=== PATIENT | female | born 1985 | race Caucasian/White ===

== ENCOUNTER 2019-09-02 09:51 | Inpatient (IN) | payer OTHER, SELFPAY ==
--- NOTE | ~2019-09-02 | CT_ITS ---
EXAMINATION: CT abdomen pelvis w con DATE: 09/02/2019 11:38 INDICATION: Generalized abdominal pain. Nausea, vomiting, diarrhea. Fever. History of pancreatitis. TECHNIQUE: Computed tomography (CT) of the abdomen and pelvis was performed with 100 cc Omnipaque 350 intravenous contrast. Automated exposure control and iterative reconstruction technique were employe d. Exam dose: 549.73 mGy-cm total exam DLP. COMPARISON: None. FINDINGS: There is minimal dependent atelectasis in the right lower lobe. Normal heart size. No pericardial or pleural effusion. Diffuse hepatic steatosis. No hepatic space-occupying mass lesion or bile duct dilatation is evident. The gallbladder is present. No gallbladder wall thickening or pericholecystic fluid or stranding. There is diffuse peripancreatic fat stranding/fluid, consistent with pancreatitis. There is an approx imately 17 x 20 mm area of lower attenuation of the pancreatic tail, most likely pancreatic phlegmon. No pancreatic calcification or ductal dilatation is evident. Normal splenic size. Normal adrenal glands. The kidneys appear normal. No urinary tract calculus or hydroureteronephrosis. IUD within uterus. The urinary bladder is relatively evacuated, unremarkable. Normal appendix. No bowel obstruction or intraperitoneal free air is detected. There are fluid contai concha distal small bowel segments with occasional air-fluid levels, without apparent obstruction; find ings are likely due to mild adynamic ileus. Normal caliber of the abdominal aorta. No intraperitoneal or retroperitoneal or pelvic mass lesion or adenopathy or ascites. Included skeletal structures are unremarkable. IMPRESSION: Acute pancreatitis with peripancreatic fat stranding/fluid Hepatic steatosis Reviewed, dictated and finalized at [facility]. Reviewed, dictated and finalized at location [facility].
--- NOTE | ~2019-09-02 | US_ITS ---
EXAMINATION: US right upper quadrant EXAM DATE: 09/03/2019 11:16 INDICATION: Nausea vomiting. Hepatic steatosis. Acute pancreatitis. TECHNIQUE: Multiple grayscale and Doppler images of the abdomen right upper quadrant were obtained (b y a technologist who performed the scan) and subsequently reviewed. Correlation is made to CT from . FINDINGS: The pancreatic head and body are normal in appearance. The pancreatic tail is not visualized. There is echogenic liver parenchyma, hepatic steatosis. There are no focal liver lesions identified. Th ere is no evidence of intrahepatic biliary duct dilation. Portal venous flow was seen in the hepatop edal, normal direction and has normal Doppler waveform. No right-sided hydronephrosis. Common bile duct measures 5 mm, which is normal. The gallbladder wall is normal in thickness, with mo derate amount of distention. No sonographic evidence of pericholecystic fluid. There is cholelithia sis. Technologist performing exam reports patient did not demonstrate sonographic Duran's sign. P ronan note that this sign is less reliable in patients who have received pain medication. IMPRESSION: Hepatic steatosis. Reviewed, dictated and finalized at location [facility]. IMPRESSION: Hepatic steatosis.
[2019-09-02 09:55] VITALS: BP 140/87; PULSE 75; RESP 18; TEMP 36.6; O2SAT 99
[2019-09-02 10:33] LABS: Basophils Absolute Auto 0.02 K/mm3 (0.00-0.10); Basophils Percent Auto 0.2 % (0.0-1.0); Hematocrit 44.3 % (35.0-49.0); Hemoglobin 15.2 g/dL (12.0-15.0); Immature Granulocyte Absolute 0.03 K/mm3 (0.00-0.00); Immature Granulocyte Percent A 0.3 % (0.0-0.0); Lymphocytes Absolute Auto 0.84 K/mm3 (1.10-4.50); Lymphocytes Percent Auto 9.7 % (18.0-42.0); Mean Corpuscular HGB Conc 34.3 g/dL (32.0-36.0); Mean Corpuscular Hemoglobin 32.8 pg (27.0-31.0); Mean Corpuscular Volume 95.7 fL (78.0-102.0); Mean Platelet Volume 10.3 fl (9.2-11.8); Monocytes Absolute Auto 0.46 K/mm3 (0.10-0.90); Monocytes Percent Auto 5.3 % (2.0-11.0); Neutrophils Absolute Auto 7.3 K/mm3 (1.7-7.2); Neutrophils Percent Auto 84.5 % (50.0-70.0); Platelet Count Result 197 K/mm3 (150-420); Red Blood Count 4.63 M/mm3 (4.20-5.40); Red Cell Distribution Width 16.7 % (11.6-14.4); White Blood Count 8.7 K/mm3 (4.8-10.8)
[2019-09-02 10:34] LABS: Add Urine Microscopic? YES; Appearance Urine Clear (Clear); Bilirubin Urine Negative (Negative); Blood Urine Negative (Negative); Color Urine Yellow (Yellow); Glucose Urine UA Negative (Negative); Ketones Urine 1+ (Negative); Leukocyte Esterase Ur Negative (Negative); Nitrate Urine Negative (Negative); Protein Urine 1+ (Negative); Urobilinogen Urine 0.2 mg/dL (0.2-1.0); pH Urine 8.5 (5.0-8.0)
[2019-09-02] MEDS: SODIUM CHLORIDE 0.9% IV 1,000 ML 999 ML IV CONT ×2 (10:35→11:25)
[2019-09-02] MEDS: HYDROMORPHONE HCL 2 MG/ML VIAL 0.5 MG IV PUSH ×4 (10:35→14:38)
[2019-09-02] MEDS: PANTOPRAZOLE SODIUM IV 40 MG VIAL IV PUSH (10:35)
[2019-09-02] MEDS: ONDANSETRON INJ 4 MG/2 ML VIAL IV PUSH ×4 (10:35→22:20)
[2019-09-02 10:37] LABS: Pregnancy On Board Control Negative; Urine Pregnancy Test Negative
[2019-09-02 10:39] LABS: RBC Urine 0-2 /hpf (0-2); Squamous Epithelial Cell Urine Moderate /hpf (Few); WBC Urine 0-3 /hpf (0-3)
[2019-09-02 10:40] LABS: Bacteria Urine 1+ /hpf; Mucus Urine Moderate /lpf
[2019-09-02 10:47] LABS: Prothrombin Time 10.5 Seconds (9.64-11.0)
--- NOTE | 2019-09-02 10:53 | PC.NURSE ---
updated report to SORAIDA Calix.
[2019-09-02 11:03] LABS: Alanine Aminotransferase 124 U/L (14-59); Alkaline Phosphatase 146 U/L (46-116); Anion Gap 16.6 mmol/L (7-16); Aspartate Amino Transferase 90 U/L (15-37); Bilirubin,Total 0.5 mg/dL (0.00-1.00); Blood Urea Nitrogen 8 mg/dL (7-18); Calcium 8.6 mg/dL (8.5-10.1); Carbon Dioxide 23 mmol/L (21-32); Chloride 102 mmol/L (98-108); Estimated CRCL calculation 85 ml/min; Estimated Glomerular Filt Rate > 60; Glucose 126 mg/dL (70-99); Osmolality Calculated 286 mOsm/kg (285-295); Potassium 3.6 mmol/L (3.5-5.1); Sodium 138 mmol/L (136-145); Total Protein 8.1 g/dL (6.4-8.2)
[2019-09-02 11:15] LABS: Lipase 2038 U/L (73-393)
--- NOTE | 2019-09-02 12:25 | PC.NURSE ---
[facility] CALLED FOR POSSIBLE ADMISSION
--- NOTE | 2019-09-02 12:42 | ED.ABDPAIN ---
HPI - Abdominal Pain General Chief Complaint: Nausea/Vomiting/Diarrhea Stated Complaint: Abd Pain/Vomiting/Fever Time Seen by Provider: 09/02/19 09:57 Source: patient Mode of arrival: ambulatory Limitations: no limitations History of Present Illness HPI narrative: 34-year-old woman comes in today complaining of abdominal pain, nausea and vomiting and fever that started yesterday. Patient states that she also had some mild diarrhea. Patient was due to have a cholecystectomy after resolution of intra-abdominal blood clot. To that end she was taking Pradaxa for 6 months, having taken her last dose 3 weeks ago. She reports that a follow-up CT shows no evidence of blood clot. MD elicited complaint: abdominal pain Onset (ago): day(s) (1) Pain Consistency: constant Location: epigastric Severity: severe Quality: sharp and burning Radiation: none Migration to: no migration Exacerbating factors: movement Relieving factors: nothing Associated symptoms: nausea, vomiting, diarrhea and fever Related Data Patient : No Home Medications Medication Instructions Recorded Confirmed gabapentin 600 mg PO DIRECTED 09/02/19 09/02/19 Allergies Allergy/AdvReac Type Severity Reaction Status Date / Time No Known Allergies Allergy Verified 09/02/19 10:27 Review of Systems Constitutional: Constitutional: Denies chills, Reports fatigue and Reports fever(s) Eyes: Eyes: Denies change in vision and Denies photophobia ENT: Denies dysphagia, Denies nasal congestion and Denies sore throat Cardiovascular: Cardiovascular: Denies chest pain and Denies radiating jaw, neck or arm pain Respiratory: Respiratory: Denies cough, Denies dyspnea and Denies wheezing Gastrointestinal: Gastrointestinal: Reports abdominal pain, Reports diarrhea, Reports nausea and Reports vomiting Genitourinary: Genitourinary: Denies hematuria, Denies nocturia and Denies dysuria Musculoskeletal: Musculoskeletal: Denies arthralgias and Denies joint swelling Integumentary/Breasts: Skin/Breast: Denies pruritus, Denies erythema and Denies rash Neurologic: Denies vertigo, Denies dizziness and Denies syncope Psychiatric: Psychiatric: Denies anxiety and Denies depression Endocrine: Endocrine: Denies polydipsia and Denies polyuria Hematologic/Lymphatic: Hematologic/Lymphatic: Denies easy bleeding and Denies easy bruising Allergic/Immunologic: Allergic/Immunologic: Denies lip swelling and Denies wheezing PMFSH Past Medical History Medical History (Updated 09/02/19 @ 12:56 by Dayday Vasquez MD) Pancreatic pseudocyst Pancreatitis Thrombus Surgical History Surgical History (Updated 09/02/19 @ 12:51 by Dayday Vasquez MD) History of esophagogastroduodenoscopy (EGD) Social History Social History (Updated 09/02/19 @ 12:51 by Dayday Vasquez MD) Smoking status: Current every day smoker Alcohol intake: never Substance use: never Living arrangements: with family Exam Const: General: healthy appearing and alert Orientation/consciousness: patient oriented x3 Limitations: no limitations Other: moderate/severe acute distress HENMT: Ears: external ears normal, TM's normal bilaterally and EAC's normal Mouth: Yes Normal oral and palatal mucosa present and Yes moist mucous membranes Throat: posterior oropharynx normal and uvula midline Eyes: Conjunctivae: conjunctivae normal Pupils: Equal, round and reactive pupils present EOM: EOMs intact bilaterally Resp: Effort & Inspection: normal respiratory effort and not labored Auscultation: clear to auscultation bilaterally, no rales, no rhonchi and no wheezes Cardio: Rate: regular rate Rhythm: regular rhythm Heart sounds: no murmurs GI: GI Palp: Yes Soft to palpation, Yes Tenderness to palpation present (GI) ( throughout, mostly at the epigastrium), Yes Guarding due to palpation present (GI) and No Rebound tenderness present Skin: General skin exam: normal color, no jaundice and
[2019-09-02 12:54] VITALS: BP 137/80; PULSE 71; O2SAT 98
--- NOTE | 2019-09-02 13:55 | PC.NURSE ---
SECOND CALL PLACED TO NELY
[2019-09-02 14:00] VITALS: BP 122/71; PULSE 73; O2SAT 97
--- NOTE | 2019-09-02 14:03 | PC.NURSE ---
DR SAUNDERS CALLS BACK FOR CONSULT - OK TO ADMIT PATIENT HERE AND PROVIDE FOLLOW UP INFORMATION AT DISCHARGE
[2019-09-02 14:34] VITALS: BP 135/77; PULSE 88; O2SAT 98
--- NOTE | 2019-09-02 14:46 | PM.IMHP ---
H&P: HPI History of Present Illness Chief complaint: Abd Pain/Vomiting/Fever Narrative: Taisha Harrison is a 34 year old female WHO PRESENTED TO THE ED COMPLAINING OF ABDOMINAL PAIN, SUBJECTIVE FEVER, NAUSEA, VOMITING, DIARRHEA SINCE YESTERDAY. PATIENT MEDICAL history of seizure ,FIBROMYALGIA AND PANCREATITIS. ACCORDING TO PATIENT THE SYMPTOMS THAT SHE IS HAVING NOW ARE THE SAME ONES SHE HAD WHEN SHE WAS IN [place] AND WAS DIAGNOSED WITH NECROTIC PANCREATITIS 3 WEEKS AGO ACCORDING TO PATIENT WHILE SHE WAS IN [place] SHE DID HAVE A PROCEDURE COMPLETED IT WAS DISCOVERED THAT SHE HAD A CLOT IN HER ABDOMEN. I HAVE REQUESTED RECORDS FROM [facility] IN [place]. ACCORDING TO THE PATIENT HER ABDOMINAL PAIN IS A 03/27 VITAL SIGNS 36.6, 88, 98, 135/77. WHILE IN THE ER CT OF THE ABDOMEN WAS COMPLETE AND INDICATED Acute pancreatitis with peripancreatic fat stranding/fluid. PATIENT BEING ADMITTED TO THE HOSPITAL FOR ACUTE PANCREATITIS SHE REMAINED NPO GIVEN PAIN MEDICATION WITH ANTI EMESIS MEDICATION AN ULTRASOUND OF THE RIGHT UPPER QUADRANT PENDING , REPEAT LABS . PATIENT DENIES SOB, CP, PALPITATION, EXTREMITY NUMBNESS, LIGHTHEADNESS, DIZZINESS, CONSTIPATION,. SHE DOES CONTINUE TO COMPLAIN OF ABDOMINAL PAIN. Review of Systems Constitutional: Constitutional: Denies fatigue, Reports fever(s), Reports headache(s) and Reports weakness ENT: Reports system reviewed and no additional complaints, except as documented Cardiovascular: Cardiovascular: Denies chest pain, Denies dyspnea on exertion and Denies orthopnea Respiratory: Respiratory: Denies no additional respiratory complaints, Denies chest congestion, Denies cough, Denies dyspnea, Denies dyspnea on exertion and Denies wheezing Gastrointestinal: Gastrointestinal: Reports abdominal pain ( GENERALIZED ABDOMINAL PAIN), Denies hematochezia, Denies coffee ground emesis, Reports diarrhea, Reports nausea, Reports vomiting and Denies hematemesis Genitourinary: Genitourinary: Reports no additional female genitourinary complaints Musculoskeletal: Musculoskeletal: Reports myalgias ( SECONDARY TO FIBROMYALGIA) Integumentary/Breasts: Skin/Breast: Reports system reviewed and no additional complaints, except as docu Neurologic: Denies confusion, Denies vertigo, Denies dizziness, Denies headache(s) and Denies weakness Psychiatric: Psychiatric: Denies no additional psychiatric complaints [facility] Past Medical History Medical History (Updated 09/03/19 @ 13:29 by Sonda R. Erasmo, DATA SECURITY COORDINATOR-C) Fibromyalgia Pancreatic pseudocyst Pancreatitis Seizure Thrombus Surgical History Surgical History (Updated 09/02/19 @ 12:51 by Dayday Vasquez MD) History of esophagogastroduodenoscopy (EGD) Social History Social History (Updated 09/02/19 @ 12:51 by Dayday Vasquez MD) Years smoked: 10 Smoking status: Current every day smoker Alcohol intake: former Substance use: never Substance use type: does not use Living arrangements: with family Gender identity (if verbalized by the patient): Female Spiritual care concerns: No Agree to blood products: Yes Meds Home Medications and Allergies Home Medications Medication Instructions Recorded Confirmed Type gabapentin See Rx Instructions .ROUTE .COMPLEX 09/02/19 09/02/19 History Allergies Allergy/AdvReac Type Severity Reaction Status Date / Time No Known Allergies Allergy Verified 09/02/19 10:27 Vital Signs Vital Signs - 24 hr 09/02/19 09:55 09/02/19 12:54 09/02/19 14:00 Temperature 36.6 C Pulse Rate 75 71 73 Respiratory Rate 18 Blood Pressure 140/87 137/80 122/71 Pulse Oximetry 99 98 97 09/02/19 14:34 Temperature Pulse Rate 88 Respiratory Rate Blood Pressure 135/77 Pulse Oximetry 98 Exam Narrative: Exam Narrative: HEENT: NORMOCEPHALIC, ATRAUMATIC. PERRL, EOMI. SCLERAE ANICTERIC. ORAL MUCOSA MOIST. OROPHARYNX CLEAR. NECK: SUPPLE. RESPIRATORY: LUNGS ARE CLEAR TO AUSCULTATION B
[2019-09-02 14:53] VITALS: BMI 29.2
[2019-09-02 15:11] VITALS: BP 123/71; PULSE 67; RESP 20; TEMP 36.6; O2SAT 98
[2019-09-02] MEDS: DEXTROSE 5%/0.9% SOD CHL 1,000 ML 200 ML IV CONT ×2 (15:50→21:04)
[2019-09-02] MEDS: ENOXAPARIN 40 MG/0.4 ML SYRINGE SUB-Q (15:51)
[2019-09-02] MEDS: HYDROMORPHONE HCL 2 MG/ML VIAL 1 MG IV PUSH ×3 (16:03→22:19)
--- NOTE | 2019-09-02 16:08 | PC.NURSE ---
a signed released faxed to [facility] in [place] for medical records for patient.
[2019-09-02] MEDS: METOCLOPRAMIDE HCL INJ 10 MG/2 ML VIAL IV PUSH (19:20)
[2019-09-02 22:00] VITALS: BP 118/74; PULSE 70; RESP 20; TEMP 36.3; O2SAT 100
--- NOTE | 2019-09-03 01:00 | PC.NURSE ---
reseting per bed, appears to be asleep. resp even and unlabored. no evidence of pain. call light in reach
[2019-09-03] MEDS: HYDROMORPHONE HCL 2 MG/ML VIAL 1 MG IV PUSH ×4 (01:28→11:35)
[2019-09-03] MEDS: METOCLOPRAMIDE HCL INJ 10 MG/2 ML VIAL IV PUSH ×3 (01:32→21:19)
[2019-09-03] MEDS: DEXTROSE 5%/0.9% SOD CHL 1,000 ML 200 ML IV CONT ×3 (01:33→11:42)
[2019-09-03] MEDS: ONDANSETRON INJ 4 MG/2 ML VIAL IV PUSH ×3 (04:34→17:15)
[2019-09-03 05:22] LABS: Basophils Absolute Auto 0.01 K/mm3 (0.00-0.10); Basophils Percent Auto 0.2 % (0.0-1.0); Eosinophils Absolute Auto 0.04 K/mm3 (0.02-0.50); Eosinophils Percent Auto 0.6 % (1.0-6.0); Hematocrit 38.5 % (35.0-49.0); Hemoglobin 13.1 g/dL (12.0-15.0); Immature Granulocyte Absolute 0.02 K/mm3 (0.00-0.00); Immature Granulocyte Percent A 0.3 % (0.0-0.0); Lymphocytes Absolute Auto 0.69 K/mm3 (1.10-4.50); Lymphocytes Percent Auto 10.9 % (18.0-42.0); Mean Platelet Volume 10.6 fl (9.2-11.8); Monocytes Absolute Auto 0.33 K/mm3 (0.10-0.90); Monocytes Percent Auto 5.2 % (2.0-11.0); Neutrophils Absolute Auto 5.2 K/mm3 (1.7-7.2); Neutrophils Percent Auto 82.8 % (50.0-70.0); Platelet Count Result 149 K/mm3 (150-420); Red Blood Count 3.97 M/mm3 (4.20-5.40); Red Cell Distribution Width 16.1 % (11.6-14.4); White Blood Count 6.3 K/mm3 (4.8-10.8)
[2019-09-03 05:29] VITALS: BP 141/90; PULSE 69; RESP 18; TEMP 36.4; O2SAT 99
[2019-09-03 05:43] LABS: Lactic Acid Reflex 1.4 mmol/L (0.4-2.0)
[2019-09-03 05:59] LABS: Alanine Aminotransferase 79 U/L (14-59); Alkaline Phosphatase 119 U/L (46-116); Anion Gap 13.4 mmol/L (7-16); Aspartate Amino Transferase 39 U/L (15-37); Bilirubin,Total 0.6 mg/dL (0.00-1.00); Blood Urea Nitrogen 2 mg/dL (7-18); Carbon Dioxide 24 mmol/L (21-32); Chloride 102 mmol/L (98-108); Estimated CRCL calculation 134 ml/min; Estimated Glomerular Filt Rate > 60; Glucose 167 mg/dL (70-99); Osmolality Calculated 282 mOsm/kg (285-295); Potassium 3.4 mmol/L (3.5-5.1); Sodium 136 mmol/L (136-145); Total Protein 6.3 g/dL (6.4-8.2)
[2019-09-03 06:00] VITALS: BP 152/84; PULSE 64; RESP 18; TEMP 36.8; O2SAT 96
[2019-09-03 06:14] LABS: Lipase 2297 U/L (73-393)
[2019-09-03 06:15] LABS: Calcium 7.3 mg/dL (8.5-10.1)
[2019-09-03] MEDS: KCL 20 MEQ/SW 100 ML 100 ML 50 MEQ (09:40)
[2019-09-03] MEDS: KCL 20 MEQ/SW 100 ML 100 ML 50 MEQ IVPB (10:11)
[2019-09-03] MEDS: GABAPENTIN 300 MG CAPSULE 600 MG PO ×4 (10:18→21:13)
[2019-09-03 10:20] VITALS: TEMP 36.1
[2019-09-03 12:15] VITALS: TEMP 36.1
--- NOTE | 2019-09-03 13:33 | P.PNIM_ITS ---
Progress Note: A&P Assessment and Plan (1) Acute pancreatitis: Qualifiers: Acute pancreatitis complication: unspecified Pancreatitis type: unspecified pancreatitis type Qualified Code(s): K85.90 - Acute pancreatitis without necrosis or infection, unspecified <Will Zimmerman AUDIT MACHINE OPERATOR-C - Last Filed: 09/03/19 14:22> Code(s): K85.90 - Acute pancreatitis without necrosis or infection, unspecified <Will Zimmerman AUDIT MACHINE OPERATOR-C - Last Filed: 09/03/19 14:22> Status: Acute <Will ZimmermanCHRIS-C - Last Filed: 09/03/19 14:22> Assessment and Plan: * CT INDICATES Acute pancreatitis with peripancreatic fat stranding/fluid * CONTINUE PAIN MEDICATION. CHANGE IV DILAUDID TO P.O. NORCO * CONTINUE ANTIEMESIS AND ANTI NAUSEA * ADVANCE DIET TO CLEAR LIQUID * CONTINUE IV FLUID HYDRATION * ULTRASOUND OF THE RIGHT UPPER QUADRANT INDICATES Hepatic steatosis. * ELEVATED LIPASE 2038 ON ADMISSION [id number] * REPEAT LIPASE IN THE A.M. <Will ZimmermanLUCIAN - Last Filed: 09/03/19 14:22> (2) DVT prophylaxis: Code(s): Z29.9 - Encounter for prophylactic measures, unspecified <Will ZimmermanCHRIS-C - Last Filed: 09/03/19 14:22> Status: Acute <Will ZimmermanNICOLASAC - Last Filed: 09/03/19 14:22> Assessment and Plan: CONTINUE LOVENOX <Will ChandraCHRIS Grover-C - Last Filed: 09/03/19 14:22> (3) Fibromyalgia: Code(s): M79.7 - Fibromyalgia <Will ChandraCHRIS Grover-C - Last Filed: 09/03/19 14:22> Status: Inactive <Chidianuj CorazonCHRIS Grover-C - Last Filed: 09/03/19 14:22> Assessment and Plan: CONTINUE GABAPENTIN <Chidianuj CorazonCHRIS Grover-C - Last Filed: 09/03/19 14:22> (4) Dehydration: Code(s): E86.0 - Dehydration <Chidianuj CorazonCHRIS Grover-C - Last Filed: 09/03/19 14:22> Status: Acute <LUCIAN Husain - Last Filed: 09/03/19 14:22> Assessment and Plan: SECONDARY TO NAUSEA VOMITING WITH DIARRHEA CONTINUE IV FLUID <LUCIAN Husain - Last Filed: 09/03/19 14:22> (5) Elevated liver enzymes: Code(s): R74.8 - Abnormal levels of other serum enzymes <LUCIAN Husain - Last Filed: 09/03/19 14:22> Status: Acute <LUCIAN Husain - Last Filed: 09/03/19 14:22> Assessment and Plan: * AST IN AL ELEVATED POSSIBLY SECONDARY TO PANCREATITIS * WILL REPEAT LEVELS IN THE A.M. * LIVER ENZYMES IMPROVING <LUCIAN Husain - Last Filed: 09/03/19 14:22> (6) Seizure: Code(s): R56.9 - Unspecified convulsions <LUCIAN Husain - Last Filed: 09/03/19 14:22> Status: Acute <LUCIAN Husain - Last Filed: 09/03/19 14:22> Assessment and Plan: * ACCORDING TO PATIENT SHE NO LONGER TAKES KEPPRA FOR SEIZURE THE GABAPENTIN IS SEATED * HER LAST SEIZURE ACTIVITY WAS LAST YEAR <LUCIAN Husain - Last Filed: 09/03/19 14:22> Subjective Date/time seen: 09/03/19 13:33 CONTENT PATIENT CONTINUES TO HAVE PAIN IN HER ABDOMINAL AREA. PATIENT PAIN MEDICATION DOES BEFORE SHORT. TODAY WE WILL STOP HER IV PAIN MEDICATION AND START P.O. PAIN MEDICATION IN ADVANCE HER DIET SLOWLY. SHE WAS STARTED OFF WITH A CLEAR LIQUID DIET AND IF TOLERATED ADVANCED HER DIETPATIENT DENIES SOB, CP, PALPITATION, EXTREMITY NUMBNESS, LIGHTHEADNESS, DIZZINESS, CONSTIPATION, DIARRHEA, OR CHILLS OR FEVER. PATIENT CONTINUES TO HAVE PAIN WITH PALPITATION AND PERCUSSION. SHE ALSO CONTINUES TO HAVE NAUSEA. <LUCIAN Husain - Last Filed: 09/03/19 14:22> Review of Systems
--- NOTE | 2019-09-03 13:33 | PM.IMPN ---
Progress Note: A&P Assessment and Plan (1) Acute pancreatitis: Qualifiers: Acute pancreatitis complication: unspecified Pancreatitis type: unspecified pancreatitis type Qualified Code(s): K85.90 - Acute pancreatitis without necrosis or infection, unspecified <Will Recio LUCIAN Zimmerman - Last Filed: 09/03/19 14:22> Code(s): K85.90 - Acute pancreatitis without necrosis or infection, unspecified <Chidianuj CoraznoNICOLASA GroverC - Last Filed: 09/03/19 14:22> Status: Acute <Will ZimmermanNICOLASAC - Last Filed: 09/03/19 14:22> Assessment and Plan: CT INDICATES Acute pancreatitis with peripancreatic fat stranding/fluid CONTINUE PAIN MEDICATION. CHANGE IV DILAUDID TO P.O. NORCO CONTINUE ANTIEMESIS AND ANTI NAUSEA ADVANCE DIET TO CLEAR LIQUID CONTINUE IV FLUID HYDRATION ULTRASOUND OF THE RIGHT UPPER QUADRANT INDICATES Hepatic steatosis. ELEVATED LIPASE 2038 ON ADMISSION [id number] REPEAT LIPASE IN THE A.M. <Chidianuj CorazonLUCIAN Grover - Last Filed: 09/03/19 14:22> (2) DVT prophylaxis: Code(s): Z29.9 - Encounter for prophylactic measures, unspecified <Will CorazonCHRIS Grover-Obdulia - Last Filed: 09/03/19 14:22> Status: Acute <Will CorazonLUCIAN Grover - Last Filed: 09/03/19 14:22> Assessment and Plan: CONTINUE LOVENOX <LUCIAN Husain - Last Filed: 09/03/19 14:22> (3) Fibromyalgia: Code(s): M79.7 - Fibromyalgia <CHRIS Husain-C - Last Filed: 09/03/19 14:22> Status: Inactive <CHRIS Husain-C - Last Filed: 09/03/19 14:22> Assessment and Plan: CONTINUE GABAPENTIN <CHRIS Husain-C - Last Filed: 09/03/19 14:22> (4) Dehydration: Code(s): E86.0 - Dehydration <CHRIS Husain-C - Last Filed: 09/03/19 14:22> Status: Acute <JUANA HusainP-C - Last Filed: 09/03/19 14:22> Assessment and Plan: SECONDARY TO NAUSEA VOMITING WITH DIARRHEA CONTINUE IV FLUID <LUCIAN Husain - Last Filed: 09/03/19 14:22> (5) Elevated liver enzymes: Code(s): R74.8 - Abnormal levels of other serum enzymes <Will Zimmerman LUCIAN - Last Filed: 09/03/19 14:22> Status: Acute <Will Zimmerman LUCIAN - Last Filed: 09/03/19 14:22> Assessment and Plan: AST IN AL ELEVATED POSSIBLY SECONDARY TO PANCREATITIS WILL REPEAT LEVELS IN THE A.M. LIVER ENZYMES IMPROVING <Will Zimmerman LUCIAN - Last Filed: 09/03/19 14:22> (6) Seizure: Code(s): R56.9 - Unspecified convulsions <Will Recio Erasmo NICOLASAObdulia - Last Filed: 09/03/19 14:22> Status: Acute <Will Zimmerman LUCIAN - Last Filed: 09/03/19 14:22> Assessment and Plan: ACCORDING TO PATIENT SHE NO LONGER TAKES KEPPRA FOR SEIZURE THE GABAPENTIN IS SEATED HER LAST SEIZURE ACTIVITY WAS LAST YEAR <Will Zimmerman LUCIAN - Last Filed: 09/03/19 14:22> Subjective Date/time seen: 09/03/19 13:33 CONTENT PATIENT CONTINUES TO HAVE PAIN IN HER ABDOMINAL AREA. PATIENT PAIN MEDICATION DOES BEFORE SHORT. TODAY WE WILL STOP HER IV PAIN MEDICATION AND START P.O. PAIN MEDICATION IN ADVANCE HER DIET SLOWLY. SHE WAS STARTED OFF WITH A CLEAR LIQUID DIET AND IF TOLERATED ADVANCED HER DIETPATIENT DENIES SOB, CP, PALPITATION, EXTREMITY NUMBNESS, LIGHTHEADNESS, DIZZINESS, CONSTIPATION, DIARRHEA, OR CHILLS OR FEVER. PATIENT CONTINUES TO HAVE PAIN WITH PALPITATION AND PERCUSSION. SHE ALSO CONTINUES TO HAVE NAUSEA. <Will Zimmerman TEST BAKERJesusitaObdulia - Last Filed: 09/03/19 14:22> Review of Systems Constitutional: Constitutional: Denies fatigue, Reports fever(s), Denies headache(s) and Denies weakness <Will ChandraCHRIS GroverUmesh - Last Filed: 09/03/19 14:22> ENT: Reports system reviewed and no additional complaints, except as documented, Denies vertigo, Denies dizziness and Denies headache(s) <CHRIS Husain-Obdulia - Last Filed: 09/03/19 14:22> Ca
[2019-09-03 14:00] VITALS: BP 152/84; PULSE 64; RESP 18; TEMP 36.8; O2SAT 96
[2019-09-03] MEDS: ENOXAPARIN 40 MG/0.4 ML SYRINGE SUB-Q (14:13)
[2019-09-03 14:37] LABS: Prothrombin Time 10.6 Seconds (9.64-11.0)
--- NOTE | 2019-09-03 19:52 | PC.NURSE ---
On the phone, denies needs, no distress noted, no evidence of pain noted
[2019-09-03] MEDS: LORAZEPAM 0.5 MG TABLET PO (21:19)
--- NOTE | 2019-09-03 21:49 | PC.NURSE ---
abdomen feels bloated, slight nausea, reglan given with ativan to help with nausea and sleep, voiding well, fluids infusing
[2019-09-03 23:49] VITALS: BP 119/62; PULSE 70; RESP 16; TEMP 36.1; O2SAT 96
--- NOTE | 2019-09-04 00:38 | PC.NURSE ---
Sleeping, resp even. IV continues. Needed objects in reach.
[2019-09-04] MEDS: GABAPENTIN 300 MG CAPSULE 600 MG PO ×4 (01:11→12:46)
[2019-09-04] MEDS: LACTATED RINGERS 1,000 ML 100 ML IV CONT (04:14)
[2019-09-04] MEDS: METOCLOPRAMIDE HCL INJ 10 MG/2 ML VIAL IV PUSH (04:35)
[2019-09-04 05:27] LABS: Hematocrit 35.6 % (35.0-49.0); Hemoglobin 11.9 g/dL (12.0-15.0); Mean Corpuscular HGB Conc 33.4 g/dL (32.0-36.0); Mean Corpuscular Hemoglobin 32.8 pg (27.0-31.0); Mean Corpuscular Volume 98.1 fL (78.0-102.0); Mean Platelet Volume 10.7 fl (9.2-11.8); Platelet Count Result 130 K/mm3 (150-420); Red Blood Count 3.63 M/mm3 (4.20-5.40); Red Cell Distribution Width 16.5 % (11.6-14.4); White Blood Count 3.8 K/mm3 (4.8-10.8)
--- NOTE | 2019-09-04 05:29 | PC.NURSE ---
Sleeping, resp even. IV continues LR 100ml hr.
[2019-09-04 05:47] LABS: Alanine Aminotransferase 66 U/L (14-59); Albumin Level 2.9 g/dL (3.4-5.0); Alkaline Phosphatase 108 U/L (46-116); Anion Gap 14.4 mmol/L (7-16); Aspartate Amino Transferase 40 U/L (15-37); Bilirubin,Total 0.7 mg/dL (0.00-1.00); Blood Urea Nitrogen 3 mg/dL (7-18); Calcium 7.9 mg/dL (8.5-10.1); Carbon Dioxide 25 mmol/L (21-32); Chloride 105 mmol/L (98-108); Estimated CRCL calculation 118 ml/min; Estimated Glomerular Filt Rate > 60; Glucose 91 mg/dL (70-99); Lipase 836 U/L (73-393); Osmolality Calculated 288 mOsm/kg (285-295); Potassium 3.4 mmol/L (3.5-5.1); Sodium 141 mmol/L (136-145); Total Protein 6.4 g/dL (6.4-8.2)
--- NOTE | 2019-09-04 07:00 | PC.NURSE ---
Pain med requested, percocet given per request of pain 8/10 in abdomen, no vomiting, nausea at times, fluids infusing, voiding well, independent in room, lipase decreased to 836 today
[2019-09-04 07:45] VITALS: BP 119/70; PULSE 71; RESP 18; TEMP 36.6; O2SAT 97
--- NOTE | 2019-09-04 08:56 | PC.NURSE ---
pain 6/10, wants her IV put on hold so she can shower
--- NOTE | 2019-09-04 09:48 | PC.NURSE ---
Set up for shower, IV on hold at this time, increase to bland diet per hospitalist
[2019-09-04] MEDS: POTASSIUM CHLORIDE 20 MEQ PACKET (FOR LIQUID) 40 MEQ PO (10:07)
--- NOTE | 2019-09-04 11:46 | PC.NURSE ---
Pain getting worse in abdomen, percocet given, no n/v noted
--- NOTE | 2019-09-04 12:56 | PM.DS ---
DS: Diagnosis Admitting Diagnosis Admitting Diagnosis: Acute pancreatitis without necrosis or infection, unspecified Discharge Diagnosis (1) Acute pancreatitis: Qualifiers: Acute pancreatitis complication: unspecified Pancreatitis type: unspecified pancreatitis type Qualified Code(s): K85.90 - Acute pancreatitis without necrosis or infection, unspecified Code(s): K85.90 - Acute pancreatitis without necrosis or infection, unspecified Status: Acute Assessment and Plan: CT INDICATES Acute pancreatitis with peripancreatic fat stranding/fluid patient tolerated p.o. pain medication patient tolerated bland male the patient pain is controlled on discharge she will discharge with Reglan and Compazine encouraged to stay hydrated after discharge (2) Fibromyalgia: Code(s): M79.7 - Fibromyalgia Status: Inactive Assessment and Plan: CONTINUE GABAPENTIN (3) Dehydration: Code(s): E86.0 - Dehydration Status: Acute Assessment and Plan: resolved SECONDARY TO NAUSEA VOMITING WITH DIARRHEA CONTINUE IV FLUID (4) Elevated liver enzymes: Code(s): R74.8 - Abnormal levels of other serum enzymes Status: Acute Assessment and Plan: AST IN AL ELEVATED POSSIBLY SECONDARY TO PANCREATITIS liver enzymes near normal (5) Seizure: Code(s): R56.9 - Unspecified convulsions Status: Acute Assessment and Plan: ACCORDING TO PATIENT SHE NO LONGER TAKES KEPPRA FOR SEIZURE THE GABAPENTIN IS SEATED HER LAST SEIZURE ACTIVITY WAS LAST YEAR DS: Summary Hospital Course Hospital Course: H&P admission 09/03/2019 Taisha Harrison is a 34 year old female WHO PRESENTED TO THE ED COMPLAINING OF ABDOMINAL PAIN, SUBJECTIVE FEVER, NAUSEA, VOMITING, DIARRHEA SINCE YESTERDAY. PATIENT MEDICAL history of seizure ,FIBROMYALGIA AND PANCREATITIS. ACCORDING TO PATIENT THE SYMPTOMS THAT SHE IS HAVING NOW ARE THE SAME ONES SHE HAD WHEN SHE WAS IN [place] AND WAS DIAGNOSED WITH NECROTIC PANCREATITIS 3 WEEKS AGO ACCORDING TO PATIENT WHILE SHE WAS IN [place] SHE DID HAVE A PROCEDURE COMPLETED IT WAS DISCOVERED THAT SHE HAD A CLOT IN HER ABDOMEN. I HAVE REQUESTED RECORDS FROM [facility] IN [place]. ACCORDING TO THE PATIENT HER ABDOMINAL PAIN IS A 10/10 VITAL SIGNS 36.6, 88, 98, 135/77. WHILE IN THE ER CT OF THE ABDOMEN WAS COMPLETE AND INDICATED Acute pancreatitis with peripancreatic fat stranding/fluid. PATIENT BEING ADMITTED TO THE HOSPITAL FOR ACUTE PANCREATITIS SHE REMAINED NPO GIVEN PAIN MEDICATION WITH ANTI EMESIS MEDICATION AN ULTRASOUND OF THE RIGHT UPPER QUADRANT PENDING , REPEAT LABS . PATIENT DENIES SOB, CP, PALPITATION, EXTREMITY NUMBNESS, LIGHTHEADNESS, DIZZINESS, CONSTIPATION,. SHE DOES CONTINUE TO COMPLAIN OF ABDOMINAL PAIN. patient will discharged 09/04/2019: patient will discharge home today with pain medication, and anti nausea and antiemesis medication. patient pain is controlled today. Patient able to tolerate all meals , slept well and ambulate at baseline. Patient denies SOB, CP, palpitation, extremity numbness, lightheadness, dizziness, constipation, diarrhea, or chills or fever. Patient agree that they are ready for discharge and discharge plan. patient does continue to slight abdominal tenderness. She will need to follow-up with aprimary care physician and possibly a specialist GI specialist. Time Spent with Patient Time attestation: Total time spent providing and/or coordinating discharge services:60 Exam Narrative: Exam Narrative: HEENT: NORMOCEPHALIC, ATRAUMATIC. PERRL, EOMI. SCLERAE ANICTERIC. ORAL MUCOSA MOIST. OROPHARYNX CLEAR. NECK: SUPPLE. RESPIRATORY: LUNGS ARE CLEAR TO AUSCULTATION BILATERALLY. CARDIOVASCULAR: REGULAR RATE AND RHYTHM WITH S1-S2. SKIN: WARM, DRY, AND SLIGHTLY PALE.. NO RASH OR LESIONS ON LIMITED EXAM. EXTREMITIES: NO CYANOSIS, CLUBBING, OR EDEMA. RADIAL AND PEDAL PULSES IN
--- NOTE | 2019-09-04 13:31 | PC.NURSE ---
Discharge instructions reviewed with patient, calling family for ride, no questions or concerns regarding instructions
--- NOTE | 2019-09-04 13:45 | PC.NURSE ---
discharge to home, personal items returned to patient, no questions or concerns
== END 2019-09-04 13:45 | disposition home or self-care (01) | DRG 440 ==
LOC: CHSED 14:33 → CHS2ND 14:36
PROVIDERS: Nurse Practitioner; Admitting Provider Emergency Medicine; Emergency Provider Emergency Medicine; Visit Provider Emergency Medicine
DX: K85.90 Acute pancreatitis without necrosis or infection, unspecified (principal); E86.0 Dehydration; M79.7 Fibromyalgia; R56.9 Unspecified convulsions; K76.0 Fatty (change of) liver, not elsewhere classified; Z86.79 Personal history of other diseases of the circulatory system
CPT/HCPCS: 36415; 74177; 76705; 80053; 81001; 81025; 83605; 83690; 85025; 85027; 85610; 85730; 96361; 96374; 96375; 96376; 99285; A9270; C9113; J1170; J1650; J2405; J2765; J3411; J3475; J3480; J7030; J7042; J7120; Q9965

== ENCOUNTER 2019-10-01 20:25 | Emergency (ER) | payer OTHER, SELFPAY ==
--- NOTE | ~2019-10-01 | XR_ITS ---
EXAMINATION: XR chest 2V EXAM DATE: 10/01/2019 21:44 INDICATION: Epigastric pain, chest pain, shortness of breath and cough. TECHNIQUE: Frontal and lateral projections of the chest obtained and reviewed. There is no prior carmen dy for comparison. FINDINGS: The lungs are clear. There are no pleural effusions. The cardiomediastinal silhouette is within normal limits. There is no pneumothorax suspected. The bones and soft tissues are unremarkab le. IMPRESSION: No acute cardiopulmonary findings. Reviewed, dictated and finalized at location A.
--- NOTE | ~2019-10-01 | CT_ITS ---
EXAMINATION: CT abdomen pelvis w con EXAM DATE: 10/01/2019 21:43 INDICATION: Abdominal pain, nausea and vomiting. History of pancreatitis. TECHNIQUE: Spiral CT of the abdomen and pelvis was performed following intravenous injection of 100 m L Omnipaque 350. Axial, coronal and sagittal images were reviewed. The dose-length product (DLP) fo r this examination was 483.94 mGy-cm. The exposure was tailored according to patient size (auto mA e xposure control), and iterative reconstruction (ASIR) was used as additional dose reduction technique . Comparison is made to prior examination from 09/02/2019. FINDINGS: There is hepatic steatosis. There is mild peripancreatic inflammation consistent with acute pancreatitis. There is interval decrease in size of the pancreatic tail pseudocyst, measuring 1.4 cm versus 1.8 on prior study. Pancreatic inflammation has improved slightly compared to prior study. Adrenal glands and spleen are unremarkable. Gallbladder is unremarkable. No biliary obstruction. Po rtal and splenic veins are patent. Kidneys enhance symmetrically. There is no hydronephrosis. The re is IUD which appears to be centrally located within the endometrium, expected position. The bladd er is unremarkable. There is no retroperitoneal or pelvic lymphadenopathy. The appendix is normal. The stomach and small bowel are unremarkable. There is expected amount of c olonic stool. No free intraperitoneal gas. The heart is normal in size. There are no pericardial or pleural effusions. The lung bases are unremarkable. The bones are unremarkable. IMPRESSION: 1. Mild acute uncomplicated pancreatitis, with mild improvement compared to prior study. 2. Small pancreatic tail pseudocyst. Reviewed, dictated and finalized at location A. IMPRESSION: 1. Mild acute uncomplicated pancreatitis, with mild improvement compared to pr ior study. 2. Small pancreatic tail pseudocyst.
[2019-10-01 20:43] VITALS: BP 127/80; PULSE 86; RESP 30; TEMP 36.5; O2SAT 100
--- NOTE | 2019-10-01 20:44 | ECG_ITS ---
Measurements Intervals [place] Rate: 91 P: 101 NV: 137 QRS: 93 QRSD: 89 T: 66 QT: 287 QTc: 353 Interpretive Statements SINUS RHYTHM DELAYED PRECORDIAL R/S TRANSITION BASELINE ARTIFACT- I, II, III, AVR, AVL, AVF, V1-V6 BORDERLINE ECG Electronically Signed On 10-02-2019 7:26:35 CDT by Demarcus Michel D.O.
[2019-10-01] MEDS: HYDROMORPHONE HCL 2 MG/ML VIAL 1 MG IV PUSH ×2 (20:48→21:58)
--- NOTE | 2019-10-01 20:50 | ED.ABDPAIN ---
HPI - Abdominal Pain General Chief Complaint: Abdominal Pain Stated Complaint: abd pain History of Present Illness HPI narrative: Taisha presented Is a 34-year-old woman with a history pancreatitis and abdominal DVT that presented to the ER with abdominal pain. Several months ago she had an episode of gallstone necrotizing pancreatitis. She was due to have her gallbladder removed but then a abdominal DVT was found. She was treated with Pradaxa for number of months but did not have the surgery because she moved back to [place]. she then had another episode of pancreatitis treated conservatively with fluids, bowel rest and pain meds. However, 2 days ago she started having epigastric pain that radiated to her back. She now has diffuse abdominal pain as well as nausea and nonbilious nonbloody vomiting. She has had no bowel movements. She reports not having any p.o. intake for 1.5 days because the pain is worse with eating. She admits that progressed to pain but n chest pin. no shortness of breath, syncope/ near syncope or lightheadedness. No dysuria, hematuria or vaginal discharge. Related Data Home Medications Medication Instructions Recorded Confirmed gabapentin See Rx Instructions .ROUTE .COMPLEX 10/02/19 10/02/19 ibuprofen 800 mg PO TID PRN 10/02/19 10/02/19 metoclopramide HCl 10 mg PO Q6H PRN 10/02/19 10/02/19 ondansetron HCl [Zofran] 8 mg PO Q8H PRN 10/02/19 10/02/19 oxycodone-acetaminophen 1 tablet PO Q6H PRN 10/02/19 10/02/19 prochlorperazine maleate 10 mg PO Q6H PRN 10/02/19 10/02/19 Allergies Allergy/AdvReac Type Severity Reaction Status Date / Time hydrocodone AdvReac Severe THROAT Verified 09/03/19 14:21 SWELLS Review of Systems Constitutional: Constitutional: Denies chills, Reports fatigue and Denies fever(s) Eyes: Eyes: Reports no additional eye complaints ENT: Reports system reviewed and no additional complaints, except as documented Cardiovascular: Cardiovascular: Reports no additional cardiovascular complaints Respiratory: Respiratory: Reports no additional respiratory complaints Gastrointestinal: Gastrointestinal: Reports as per HPI Genitourinary: Genitourinary: Reports no additional female genitourinary complaints Musculoskeletal: Musculoskeletal: Reports no additional musculoskeletal complaints Neurologic: Reports system reviewed and no additional complaints, except as documented Psychiatric: Psychiatric: Reports no additional psychiatric complaints Endocrine: Endocrine: Reports no additional endocrine complaints Hematologic/Lymphatic: Hematologic/Lymphatic: Reports no additional hematologic/lymphatic complaints Allergic/Immunologic: Allergic/Immunologic: Reports no additional allergic/immunologic complaints [facility] Past Medical History Medical History Fibromyalgia Pancreatic pseudocyst Pancreatitis Seizure Thrombus Surgical History Surgical History History of esophagogastroduodenoscopy (EGD) Social History Social History Years smoked: 10 Smoking status: Current every day smoker Tobacco type: cigarettes Second hand tobacco smoke exposure: Yes Alcohol intake: never Substance use: never Substance use type: does not use Gender identity (if verbalized by the patient): Female Spiritual care concerns: No Agree to blood products: Yes Exam Const: General: alert Orientation/consciousness: patient oriented x3 Other: In [id number] distress. Walks slowly with short steps hunched over holding her abdomen. HENMT: Other: normocephalic, atraumatic Eyes: Conjunctivae: conjunctivae normal Pupils: Equal, round and reactive pupils present Neck: Neck: normal visual inspection Chest: Chest palpation & inspection: normal inspection of the chest Resp: Effort & Inspection: normal resp
[2019-10-01] MEDS: LACTATED RINGERS 1,000 ML 999 ML IV CONT ×2 (21:01→23:15)
[2019-10-01 21:03] LABS: Add Urine Microscopic? YES; Appearance Urine Clear (Clear); Bilirubin Urine Negative (Negative); Blood Urine 1+ (Negative); Color Urine Yellow (Yellow); Glucose Urine UA Negative (Negative); Ketones Urine Trace (Negative); Leukocyte Esterase Ur Negative LEU/UL (Negative); Nitrate Urine Negative (Negative); Protein Urine Negative (Negative); pH Urine 6.5 (5.0-8.0)
[2019-10-01 21:05] LABS: Basophils Absolute Auto 0.03 K/mm3 (0.00-0.10); Basophils Percent Auto 0.5 % (0.0-1.0); Eosinophils Absolute Auto 0.07 K/mm3 (0.02-0.50); Eosinophils Percent Auto 1.1 % (1.0-6.0); Hematocrit 41.2 % (35.0-49.0); Hemoglobin 14.5 g/dL (12.0-15.0); Immature Granulocyte Absolute 0.02 K/mm3 (0.00-0.00); Immature Granulocyte Percent A 0.3 % (0.0-0.0); Lymphocytes Absolute Auto 2.53 K/mm3 (1.10-4.50); Lymphocytes Percent Auto 39.7 % (18.0-42.0); Mean Corpuscular HGB Conc 35.2 g/dL (32.0-36.0); Mean Corpuscular Volume 96.7 fL (78.0-102.0); Mean Platelet Volume 11.2 fl (9.2-11.8); Monocytes Absolute Auto 0.39 K/mm3 (0.10-0.90); Monocytes Percent Auto 6.1 % (2.0-11.0); Neutrophils Absolute Auto 3.3 K/mm3 (1.7-7.2); Neutrophils Percent Auto 52.3 % (50.0-70.0); Platelet Count Result 161 K/mm3 (150-420); Red Blood Count 4.26 M/mm3 (4.20-5.40); Red Cell Distribution Width 16.6 % (11.6-14.4); White Blood Count 6.4 K/mm3 (4.8-10.8)
[2019-10-01] MEDS: HYDROMORPHONE HCL 2 MG/ML VIAL 0.5 MG IV PUSH ×2 (21:07→23:15)
[2019-10-01 21:09] LABS: RBC Urine 0-2 /hpf (0-2); WBC Urine 0-3 /hpf (0-3)
[2019-10-01 21:10] LABS: Bacteria Urine 1+ /hpf; Squamous Epithelial Cell Urine Many /hpf (Few)
[2019-10-01 21:15] LABS: Pregnancy On Board Control POS; Urine Pregnancy Test Negative
[2019-10-01 21:16] LABS: Prothrombin Time 10.5 Seconds (9.64-11.0)
[2019-10-01 21:19] LABS: Alanine Aminotransferase 275 U/L (14-59); Albumin Level 3.8 g/dL (3.4-5.0); Alkaline Phosphatase 169 U/L (46-116); Aspartate Amino Transferase 260 U/L (15-37); Bilirubin,Total 0.6 mg/dL (0.00-1.00); Blood Urea Nitrogen 7 mg/dL (7-18); Calcium 8.3 mg/dL (8.5-10.1); Carbon Dioxide 23 mmol/L (21-32); Chloride 104 mmol/L (98-108); Estimated CRCL calculation 84 ml/min; Estimated Glomerular Filt Rate > 60; Glucose 109 mg/dL (70-99); Lactic Acid Reflex 2.2 mmol/L (0.4-2.0); Lipase 1080 U/L (73-393); Osmolality Calculated 291 mOsm/kg (285-295); Sodium 141 mmol/L (136-145); Total Protein 7.7 g/dL (6.4-8.2)
[2019-10-01 21:21] LABS: Troponin I < 0.02 ng/mL (0.00-0.056)
[2019-10-01 21:22] LABS: BNP 7.6 pg/mL (0-100)
[2019-10-01 23:28] VITALS: BP 118/67; PULSE 88; RESP 15; O2SAT 93
--- NOTE | 2019-10-01 23:34 | PC.NURSE ---
UNABLE TO PROVIDE STOP TIME FOR SECOND LITER OF LR, SEE NELY RODRIGUEZINGYASMANY RN, FOR STOP TIME
[2019-10-01 23:58] LABS: Reflex Lactic Acid Yes or No Add Lactic
== END 2019-10-01 23:20 | disposition short-term general hospital (02) ==
PROVIDERS: Emergency Provider Family Medicine
DX: K85.90 Acute pancreatitis without necrosis or infection, unspecified (principal)
CPT/HCPCS: 36415; 71046; 74177; 80053; 81001; 81025; 83605; 83690; 83880; 84484; 85025; 85610; 93005; 96361; 96374; 96376; 99285; J1170; J7120; Q9965

== ENCOUNTER 2019-10-02 00:03 | Inpatient (IN) | payer OTHER, SELFPAY ==
--- NOTE | ~2019-10-02 | US_ITS ---
EXAMINATION: US right upper quadrant DATE: 10/02/2019 08:31 INDICATION: Right upper quadrant pain TECHNIQUE: Multiple grayscale and Doppler ultrasound images of the abdomen were obtained. COMPARISON: CT from yesterday FINDINGS: The head and and body of the pancreas are normal. The pancreatic tail is obscured by bowel gas. The liver demonstrates increased echogenicity, heterogenous echotexture, and decreased through t ransmission. No surface nodularity. Normal hepatopetal flow in the main portal vein. The gallbladder is mildly distended but otherwise normal in appearance with no abnormal wall thickening, pericholecys tic fluid or stones. The normal common bile duct measures 5 mm. There was no sonographic Duran sign. IMPRESSION: 1. Gallbladder distention without additional findings to suggest acute cholecystitis. 2. Diffuse hepatic steatosis. Reviewed, dictated and finalized at location A. IMPRESSION: 1. Gallbladder distention without additional findings to suggest acute cholecys titis. 2. Diffuse hepatic steatosis.
--- NOTE | 2019-10-02 00:06 | PC.NURSE ---
This patient, Taisha Harrison, was admitted to Medical Room 246-01. Patient/family oriented to hospital policies and general routines including ID bracelet, bed and alarms, visiting hours, pain management, procedures, bathroom and other care routines, personal items, smoking policy, room service/diet, and visiting hours. Valuables list has been completed. Information on how to activate the Rapid Response Team has been discussed. Patient/Family are encouraged to report perceived risks to care and to ask questions if they do not understand what they are told or what they should do.
[2019-10-02 00:16] VITALS: BP 133/71; PULSE 78; RESP 24; TEMP 36.3; O2SAT 98
--- NOTE | 2019-10-02 00:38 | PM.IMHP ---
H&P: HPI History of Present Illness Chief complaint: . Narrative: This is a pleasant 34 year old female with known history of Fibromyalgia, anxiety, and depression who has been battling with recurrent pancreatitis for the past 5-6 months. She initially developed necrotizing pancreatitis with abdominal vasculature clotting almost 6 months ago while in [place]. She has been on Pradaxa until about six weeks ago. She was told that her initial pancreatitis was caused by gallbladder disease as she was seen to have sludge vs. stones on imaging. She was most recently admitted to the hospital about 1 month ago and found to also have a pancreatic pseudocyst on CT scan. Tonight she returned to [facility] with a complaint of 2 days of epigastric pain radiating towards her back, nausea, and vomiting. Associated symptoms include chills and a productive cough of mucous. She also reports decreased urine output. She last ate approximately 2 days ago. She was evaluated at the [facility] ER this evening and again found to have evidence of acute pancreatitis on her CT scan w/ elevated lipase over 1000. Her pseudocyst appears to have gotten smaller in size on CT tonight. We have been asked to directly admit the patient to our hospital to have our GI specialist evaluate her. I have spoked to Dr. Lovett, GI who has agreed to consult on the case. The patient has no other complaints. Review of Systems Review of Systems: All systems reviewed & are unremarkable except as noted in HPI and below PMFSH Past Medical History Medical History (Updated 10/02/19 @ 06:41 by Dayday Naylor MD) Anxiety Depression Fibromyalgia Pancreatic pseudocyst Pancreatitis Sciatica Seizure Thrombus Surgical History Surgical History History of esophagogastroduodenoscopy (EGD) Family History Family History Mother Diabetes mellitus Grandparent Parkinson disease Social History Social History Years smoked: 10 Smoking status: Current every day smoker Tobacco type: cigarettes Second hand tobacco smoke exposure: Yes Alcohol intake: never Substance use: never Substance use type: does not use Gender identity (if verbalized by the patient): Female Spiritual care concerns: No Agree to blood products: Yes Meds Home Medications and Allergies Home Medications Medication Instructions Recorded Confirmed Type gabapentin See Rx Instructions .ROUTE .COMPLEX 10/02/19 10/02/19 History ibuprofen 800 mg PO TID PRN 10/02/19 10/02/19 History metoclopramide HCl 10 mg PO Q6H PRN 10/02/19 10/02/19 History ondansetron HCl [Zofran] 8 mg PO Q8H PRN 10/02/19 10/02/19 History oxycodone-acetaminophen 1 tablet PO Q6H PRN 10/02/19 10/02/19 History prochlorperazine maleate 10 mg PO Q6H PRN 10/02/19 10/02/19 History Allergies Allergy/AdvReac Type Severity Reaction Status Date / Time hydrocodone AdvReac Severe THROAT Verified 09/03/19 14:21 SWELLS Vital Signs Vital Signs - 24 hr 10/02/19 00:16 Temperature 36.3 C L Pulse Rate 78 Respiratory Rate 24 H Blood Pressure 133/71 Pulse Oximetry 98 Exam Const: General: cooperative, alert, awake, acute distress moderate and ill appearing Nutritional Appearance: well nourished Orientation/consciousness: patient oriented x3 HENMT: Head: normal to inspection General nose exam: Normal external nose present Face and sinus: normal facial exam Mouth: Yes Normal oral and palatal mucosa present and Yes oropharynx normal Eyes: Pupils: Equal, round and reactive pupils present EOM: EOMs intact bilaterally Neck: Neck: supple and no JVD Thyroid: thyroid normal Lymphatic: lymphadenopathy not noted Resp: Effort & Inspection: normal respiratory effort Auscultation: clear to auscultation bilaterally Cardio: Rate: regular rate Rhythm: regular rhyth
[2019-10-02] MEDS: SODIUM CHLORIDE 0.9% IV 1,000 ML 125 ML IV CONT ×3 (00:58→16:49)
[2019-10-02] MEDS: HYDROMORPHONE HCL 1 MG/ML INJ IV PUSH ×7 (01:01→21:01)
[2019-10-02] MEDS: ONDANSETRON INJ 4 MG/2 ML VIAL IV PUSH ×3 (01:03→14:20)
[2019-10-02 01:11] LABS: Lactic Acid Reflex 1.4 mmol/L (0.7-2.1)
[2019-10-02 05:58] LABS: Basophils Percent Auto 0.6 % (0.2-1.2); Eosinophils Absolute Auto 0.1 K/mm3 (0-0.3); Eosinophils Percent Auto 2.8 % (0-4.4); Hematocrit 37.2 % (37.0-47.0); Hemoglobin 12.5 g/dL (12.0-15.0); Immature Granulocyte Absolute 0.01 K/mm3 (0.00-0.031); Immature Granulocyte Percent A 0.2 % (0-0.5); Immature Platelet Fraction Pct 7.8 % (0.9-11.2); Lymphocytes Absolute Auto 1.41 K/mm3 (0.9-3.2); Lymphocytes Percent Auto 30.2 % (18.3-44.2); Mean Corpuscular HGB Conc 33.6 g/dl (32-36); Mean Corpuscular Hemoglobin 32.6 pg (26-34); Mean Corpuscular Volume 97.1 fl (80-100); Mean Platelet Volume 11.6 fl (7.4-10.4); Monocytes Absolute Auto 0.3 K/mm3 (0.1-0.6); Monocytes Percent Auto 6.9 % (2.6-8.5); Neutrophils Absolute Auto 2.8 K/mm3 (1.3-6.7); Neutrophils Percent Auto 59.3 % (45.5-73.1); Platelet Count Result 121 k/mm3 (150-375); Red Blood Count 3.83 M/mm3 (4.2-5.4); Red Cell Distribution Width 16.5 % (11.5-14.5); White Blood Count 4.7 K/mm3 (4.5-10.0)
[2019-10-02 06:00] VITALS: BP 118/73; PULSE 75; RESP 16; TEMP 36.1; O2SAT 96
[2019-10-02 06:19] LABS: Blood Urea Nitrogen 6 mg/dL (7-17); Carbon Dioxide 27 mmol/L (22-30); Chloride 104 mmol/L (98-107); Estimated CRCL calculation 139 ml/min; Estimated Glomerular Filt Rate > 60; Glucose 86 mg/dL (65-105); Magnesium 1.4 mg/dL (1.6-2.3); Potassium 3.9 mmol/L (3.4-5.0); Sodium 136 mmol/L (137-145)
[2019-10-02 06:55] LABS: Cholesterol 162 mg/dL (0-200); HDL Direct 38 mg/dL; Triglycerides 125 mg/dL (<150)
[2019-10-02 07:06] LABS: LDL Cholesterol Direct 117 mg/dL
[2019-10-02] MEDS: NICOTINE (*PBKC) 21 MG PATCH 1 PATCH TRANSDERM (08:02)
--- NOTE | 2019-10-02 08:11 | WPDGICN ---
Assessment and Plan Assessment and plan (1) Acute pancreatitis: Qualifiers: Acute pancreatitis complication: unspecified Pancreatitis type: unspecified pancreatitis type Qualified Code(s): K85.90 - Acute pancreatitis without necrosis or infection, unspecified Code(s): K85.90 - Acute pancreatitis without necrosis or infection, unspecified Status: Acute Assessment and Plan: Patient has recurrent pancreatitis. Etiology unclear at this point. But she was given the diagnosis of cholelithiasis in February. Agree with repeating gallbladder ultrasound. Consider surgical resection of gallbladder after this episode of pancreatitis resolves. At present will continue pain control she should remain NPO for now. Consider NG tube as symptoms persist. Monitor labs and electrolytes at this time. Small pseudocysts identified on CT scan does not appear to be clinically significant at this time. In fact CT scan findings appears improved compared to pancreatitis episode 1 month ago. By x-ray findings. (2) Elevated liver enzymes: Code(s): R74.8 - Abnormal levels of other serum enzymes Status: Acute Assessment and Plan: Elevated LFTs undoubtedly related to acute pancreatitis. These will need to be monitored. If they fail to improve in MRCP may be considered at some point. (3) History of seizures: Code(s): Z87.898 - Personal history of other specified conditions Status: Acute GI Consult Note Consult date/time: 10/02/19 08:11 HPI: Taisha Harrison is a 34 year old female seen in evaluation at the request of the hospitalist service. Patient reports a 4 day history of abdominal pain nausea vomiting. She has had some diarrhea. But no stool for 1-2 days prior to admission the hospital. She presented to [facility] Emergency room. Followed to have elevated lipase. Transferred here for further management. Her past history is significant for pancreatitis in [place] in February of 2019. Apparently hospitalized with very severe episode that include necrotizing pancreatitis a portal vein thrombosis. She was found to have a pseudocyst. At that time she was told she had gallstones and also pneumonia. Surgery was anticipated but never accomplished. She was discharged on pain medications and anticoagulation with Pradaxa. She finished her dose of Pradaxa several weeks ago. One month ago was admitted [facility] for several days with recurrent episode pancreatitis. And did well until 4 days ago when her pain recurred. She has no family history of pancreatitis, she denies alcohol intake. Current medications include only ibuprofen gabapentin and anti nausea medications. Review of Systems Review of Systems: All systems reviewed & are unremarkable except as noted in HPI and below PMFSH Past Medical History Medical History Anxiety Depression Fibromyalgia Pancreatic pseudocyst Pancreatitis Sciatica Seizure Thrombus Surgical History Surgical History History of esophagogastroduodenoscopy (EGD) Family History Family History Mother Diabetes mellitus Grandparent Parkinson disease Social History Social History Years smoked: 10 Smoking status: Current every day smoker Tobacco type: cigarettes Second hand tobacco smoke exposure: Yes Alcohol intake: never Substance use: never Substance use type: does not use Gender identity (if verbalized by the patient): Female Spiritual care concerns: No Agree to blood products: Yes Meds Home Medications and Allergies Home Medications Medication Instructions Recorded Confirmed Type gabapentin See Rx Instructions .ROUTE .COMPLEX 10/02/19 10/02/19 History ibuprofen 800 mg PO TID PRN 10/02/19 10/02/19 Histor
--- NOTE | 2019-10-02 11:24 | PM.IMPN ---
Progress Note: A&P Assessment and Plan (1) Acute pancreatitis: Qualifiers: Acute pancreatitis complication: unspecified Pancreatitis type: unspecified pancreatitis type Qualified Code(s): K85.90 - Acute pancreatitis without necrosis or infection, unspecified Code(s): K85.90 - Acute pancreatitis without necrosis or infection, unspecified Status: Acute Assessment and Plan: CT scan showing mild acute pancreatitis with Lipase at 1080. CT scan also showing small pseudocyst in the tail of the pancreas but small then in August. TG level normal. RUQ US showing distended GB but otherwise normal. Continue IVF and NPO status for now. Continue Diludid for pain. Will add Ativan for adjunct measures for pain. (2) Elevated liver enzymes: Code(s): R74.8 - Abnormal levels of other serum enzymes Status: Acute Assessment and Plan: AST 260 and ALT 275 on admission. Secondary to acute pancreatitis. Repeat LFTs in the morning. (3) Dehydration: Code(s): E86.0 - Dehydration Status: Acute Assessment and Plan: Stable. Will continue IVF but decrease rate. (4) Pseudocyst of pancreas: Code(s): K86.3 - Pseudocyst of pancreas Status: Acute Assessment and Plan: As above. Decreasing in size and may be too small to drain. (5) Seizure: Code(s): R56.9 - Unspecified convulsions Status: Chronic Assessment and Plan: Resume gabapentin today. Dose verified with patient and with her pharmacy. (6) Tobacco dependence: Code(s): F17.200 - Nicotine dependence, unspecified, uncomplicated Status: Chronic Assessment and Plan: Patient has been counseled regarding nicotine cessation. Nicotine patch started. (7) DVT prophylaxis: Code(s): Z29.9 - Encounter for prophylactic measures, unspecified Status: Acute Assessment and Plan: SCDs Subjective Date/time seen: 10/02/19 11:24 Interval history: 34yo female with hx of pancreatitis here for abd pain and found to have recurrent pancreatitis. Patietn feels 'aweful'. She is having nausea and vomiting. She complains of severe abdominal pain and back pain. No CP but did have CP yesterday in the mid chest; it would last about 1 hour each time. No BM. Poor oral intake for the past 3 days. Exam Narrative: Exam Narrative: Gen - NARD lying almost flat in bed Chest - decreased BS in the bases otherwise clear, nml RR CV - RRR S1/S2 Abd - diffuse volutary guarding even to light touch Back - diffuse pain along the spinous process, paraspinal area and CVA area Ext - No pedal edema Psych - Nml mood and affect Skin - Warm and dry Objective Data Vital Signs Vital Signs: Vital Signs - 24 hr 10/02/19 00:16 10/02/19 06:00 Temperature 97.3 F L 96.9 F L Pulse Rate 78 75 Respiratory Rate 24 H 16 Blood Pressure 133/71 118/73 Pulse Oximetry 98 96 Intake/Output Intake/Output: Intake & Output 09/29/19 09/30/19 10/01/19 10/02/19 23:59 23:59 23:59 23:59 Intake Total 1200 Output Total 350 Balance 850 Meds/Results Medications: Active Medications Generic Name Dose Route Start Last Admin Trade Name Freq PRN Reason Stop Dose Admin Hydromorphone HCl 1 mg 10/02/19 00:35 10/02/19 11:02 Dilaudid Inj IV PUSH 10/02/19 19:00 1 mg Q3H PRN Administration Pain Rated 7-10 Sodium Chloride 1,000 mls @ 125 mls/hr 10/02/19 00:35 10/02/19 08:39 Normal Saline Iv IV CONT 125 mls/hr .Q8H HEMAL Administration Nicotine 1 patch 10/02/19 09:00 10/02/19 08:02 Nicoderm Cq 21 Mg TRANSDERM 1 patch QAM HEMAL Administration Ondansetron HCl 4 mg 10/02/19 00:33 10/02/19 07:58 Zofran Inj IV PUSH 4 mg Q6H PRN Administration Nausea And Vomiting Radiology Results: ITS Impressions Upper Quadrant Ultrasound 10/02/19 08:45 IMPRESSION: 1. Gallbladder distention without additional findings to
[2019-10-02] MEDS: LORAZEPAM INJ 2 MG/ML VIAL 0.5 MG IV PUSH ×2 (12:27→21:05)
[2019-10-02 14:00] VITALS: BP 132/86; PULSE 71; RESP 16; TEMP 36.1; O2SAT 98
[2019-10-02] MEDS: GABAPENTIN 300 MG CAPSULE 600 MG PO ×3 (14:20→21:08)
[2019-10-02 20:00] VITALS: PULSE 71; RESP 16; O2SAT 98
[2019-10-02] MEDS: METOCLOPRAMIDE HCL INJ 10 MG/2 ML VIAL IV PUSH (21:01)
[2019-10-02 22:00] VITALS: BP 134/97; PULSE 74; RESP 16; TEMP 36.8; O2SAT 97
[2019-10-03] MEDS: HYDROMORPHONE HCL 1 MG/ML INJ IV PUSH ×8 (00:17→23:00)
[2019-10-03] MEDS: SODIUM CHLORIDE 0.9% IV 1,000 ML 125 ML IV CONT ×2 (02:09→10:01)
[2019-10-03] MEDS: METOCLOPRAMIDE HCL INJ 10 MG/2 ML VIAL IV PUSH ×3 (04:13→15:58)
[2019-10-03] MEDS: LORAZEPAM INJ 2 MG/ML VIAL 0.5 MG IV PUSH ×4 (04:18→22:52)
[2019-10-03 04:51] LABS: Hematocrit 36.3 % (37.0-47.0); Mean Corpuscular HGB Conc 33.1 g/dl (32-36); Mean Corpuscular Hemoglobin 33.1 pg (26-34); Mean Corpuscular Volume 100.3 fl (80-100); Mean Platelet Volume 10.9 fl (7.4-10.4); Platelet Count Result 95 k/mm3 (150-375); Red Blood Count 3.62 M/mm3 (4.2-5.4); Red Cell Distribution Width 15.3 % (11.5-14.5); White Blood Count 3.4 K/mm3 (4.5-10.0)
[2019-10-03 05:11] LABS: Alanine Aminotransferase 154 U/L (4-35); Albumin Level 3.5 g/dL (3.5-5.1); Alkaline Phosphatase 153 U/L (38-126); Aspartate Amino Transferase 129 U/L (14-36); Bilirubin,Total 1.3 mg/dL (0.2-1.3); Blood Urea Nitrogen 6 mg/dL (7-17); Calcium 7.9 mg/dL (8.4-10.2); Carbon Dioxide 19 mmol/L (22-30); Chloride 104 mmol/L (98-107); Estimated CRCL calculation 139 ml/min; Estimated Glomerular Filt Rate > 60; Glucose 62 mg/dL (65-105); Lipase 524 U/L (23-300); Sodium 134 mmol/L (137-145)
[2019-10-03 05:26] LABS: Beta HCG Quantitative < 2.39 mIU/ML
[2019-10-03] MEDS: GABAPENTIN 300 MG CAPSULE 600 MG PO ×5 (05:59→22:52)
[2019-10-03 06:00] VITALS: BP 114/71; PULSE 70; RESP 16; TEMP 36.3; O2SAT 98
[2019-10-03] MEDS: NICOTINE (*PBKC) 21 MG PATCH 1 PATCH TRANSDERM (07:34)
--- NOTE | 2019-10-03 07:43 | WPDGIPROGNO ---
Progress Note: A&P Additional Plan Patient is somewhat more comfortable this morning. Passing flatus. Abdominal pain still present but lessened. Less anxious. physical exam reveals patient to be alert. Anicteric. Lungs are clear. Heart without murmur. Abdomen is soft. Bowel sounds are present. Mild epigastric tenderness persists. Impression 1. Acute pancreatitis. Slow clinical improvement. Plan is to allow liquid diet and advance slowly to low-fat diet. Ultrasound reveals no gallstones. Fatty liver identified. We may want to consider cholecystectomy because is this is the 3rd episode of pancreatitis. Previously she was told she had gallstones not evident today. Elevated LFTs likely related to pancreatitis LFTs will continue to be monitored. 2. Pancreatic pseudocyst. Very small. Not amenable to drainage. 3. Anxiety. Subjective Date/time seen: 10/03/19 07:43 Objective Data Vital Signs Vital Signs: Vital Signs - 24 hr 10/02/19 14:00 10/02/19 20:00 10/02/19 22:00 Temperature 36.1 C L 36.8 C Pulse Rate 71 71 74 Respiratory Rate 16 16 16 Blood Pressure 132/86 134/97 H Pulse Oximetry 98 98 97 10/03/19 06:00 Temperature 36.3 C L Pulse Rate 70 Respiratory Rate 16 Blood Pressure 114/71 Pulse Oximetry 98 Intake/Output Intake/Output: Intake & Output 09/30/19 10/01/19 10/02/19 10/03/19 23:59 23:59 23:59 23:59 Intake Total 2206.5 993.5 Output Total 950 1100 Balance 1256.5 -106.5 Meds/Results Medications: Active Medications Generic Name Dose Route Start Last Admin Trade Name Freq PRN Reason Stop Dose Admin Gabapentin 600 mg 10/02/19 14:00 10/03/19 05:59 Neurontin PO 600 mg 5 X DAILY HEMAL Administration Hydromorphone HCl 1 mg 10/02/19 20:28 10/03/19 07:35 Dilaudid Inj IV PUSH 1 mg Q3H PRN Administration Pain Rated 7-10 Sodium Chloride 1,000 mls @ 100 mls/hr 10/02/19 00:35 10/03/19 02:09 Normal Saline Iv IV CONT 125 mls/hr .Q10H HEMAL Administration Lorazepam 0.5 mg 10/02/19 12:16 10/03/19 04:18 Ativan Inj IV PUSH 0.5 mg Q6H PRN Administration Anxiety Metoclopramide HCl 10 mg 10/02/19 20:29 10/03/19 04:13 Reglan IV PUSH 10 mg Q6HR PRN Administration nausea/vomiting Nicotine 1 patch 10/02/19 09:00 10/03/19 07:34 Nicoderm Cq 21 Mg TRANSDERM 1 patch QAM HEMAL Administration Radiology Results: ITS Impressions Upper Quadrant Ultrasound 10/02/19 08:45 IMPRESSION: 1. Gallbladder distention without additional findings to suggest acute cholecystitis. 2. Diffuse hepatic steatosis. Labs Labs: Laboratory Results - last 24 hr 10/03/19 10/03/19 04:35 04:35 WBC 3.4 L RBC 3.62 L Hgb 12.0 Hct 36.3 L MCV 100.3 H MCH 33.1 MCHC 33.1 RDW 15.3 H Plt Count 95 L MPV 10.9 H Sodium 134 L Potassium 4.0 Chloride 104 Carbon Dioxide 19 L BUN 6 L Creatinine 0.50 L Estim Creat Clear Calc 139 Estimated GFR > 60 Glucose 62 L Calcium 7.9 L Total Bilirubin 1.3 AST 129 H ALT 154 H Alkaline Phosphatase 153 H Total Protein 7.0 Albumin 3.5 Lipase 524 H Beta HCG, Quant < 2.39
[2019-10-03 14:00] VITALS: BP 129/84; PULSE 73; RESP 16; TEMP 36.8; O2SAT 98
--- NOTE | 2019-10-03 14:10 | PM.IMPN ---
Progress Note: A&P Assessment and Plan (1) Acute pancreatitis: Qualifiers: Acute pancreatitis complication: unspecified Pancreatitis type: unspecified pancreatitis type Qualified Code(s): K85.90 - Acute pancreatitis without necrosis or infection, unspecified Code(s): K85.90 - Acute pancreatitis without necrosis or infection, unspecified Status: Acute Assessment and Plan: CT scan showing mild acute pancreatitis with Lipase at 1080. CT scan also showing small pseudocyst in the tail of the pancreas but smaller than in August. TG level normal. RUQ US showing distended GB but otherwise normal. Repeat Lipase 524. Abd pain better and tolerating clear liquids. Advance diet as tolerated. Continue Diludid for pain and Ativan as an adjunct treatment for pain. (2) Elevated liver enzymes: Code(s): R74.8 - Abnormal levels of other serum enzymes Status: Acute Assessment and Plan: AST 260 and ALT 275 on admission. Secondary to acute pancreatitis. Repeat LFTs better at 129 and 154 respectfully. Continue to monitor. (3) Dehydration: Code(s): E86.0 - Dehydration Status: Acute Assessment and Plan: Stable. Will stop IVF since tolerating clear liquids. (4) Pseudocyst of pancreas: Code(s): K86.3 - Pseudocyst of pancreas Status: Acute Assessment and Plan: As above. Decreasing in size and may be too small to drain. (5) Seizure: Code(s): R56.9 - Unspecified convulsions Status: Chronic Assessment and Plan: Stable. Gabapentin has been resumed. Dose was verified with patient and with her pharmacy. (6) Tobacco dependence: Code(s): F17.200 - Nicotine dependence, unspecified, uncomplicated Status: Chronic Assessment and Plan: Patient has been counseled regarding nicotine cessation. Nicotine patch started. (7) DVT prophylaxis: Code(s): Z29.9 - Encounter for prophylactic measures, unspecified Status: Acute Assessment and Plan: SCDs (8) Thrombocytopenia: Code(s): D69.6 - Thrombocytopenia, unspecified Status: Acute Assessment and Plan: Patient with acute TCP. Spleen normal so doubt sequestering. No obvious Heparin exposure. test is negative. Viral? Consumptive? Doubt drug induced. Consider SLE. IgG and KIKI pending. Contineu to monitor for now. (9) Leukopenia: Qualifiers: Leukopenia type: unspecified Qualified Code(s): D72.819 - Decreased white blood cell count, unspecified Code(s): D72.819 - Decreased white blood cell count, unspecified Status: Acute Assessment and Plan: Mild leukopenia. Normal differential yesterday. Macrocytosis noted today. Check B12 level. Subjective Date/time seen: 10/03/19 14:10 Interval history: 34yo female with hx of pancreatitis here for abd pain and found to have recurrent pancreatitis. Abd pain better. No n/v. No diarrhea. Toelrating clear liquids today. Back pain better as well. Up ambulating to the BR. Exam Narrative: Exam Narrative: Gen - NARD lying almost flat in bed Chest - CTA bilaterally, nml RR CV - RRR S1/S2 Abd - abd less tender today, +BS Back - decreased pain to palpation Ext - No pedal edema Psych - Nml mood and affect Skin - Warm and dry Objective Data Vital Signs Vital Signs: Vital Signs - 24 hr 10/02/19 20:00 10/02/19 22:00 10/03/19 06:00 Temperature 98.2 F 97.4 F L Pulse Rate 71 74 70 Respiratory Rate 16 16 16 Blood Pressure 134/97 H 114/71 Pulse Oximetry 98 97 98 10/03/19 14:00 Temperature 98.2 F Pulse Rate 73 Respiratory Rate 16 Blood Pressure 129/84 Pulse Oximetry 98 Intake/Output Intake/Output: Intake & Output 09/30/19 10/01/19 10/02/19 10/03/19 23:59 23:59 23:59 23:59 Intake Total 2206.5 2923.5 Output Total 950 1100 Balance 1256.5 1823.5 Meds/Results Medications: Active M
[2019-10-03 18:15] LABS: Basophils Percent Auto 0.5 % (0.2-1.2); Eosinophils Absolute Auto 0.1 K/mm3 (0-0.3); Eosinophils Percent Auto 5.6 % (0-4.4); Hematocrit 36.6 % (37.0-47.0); Hemoglobin 12.2 g/dL (12.0-15.0); Immature Granulocyte Absolute 0.01 K/mm3 (0.00-0.031); Immature Granulocyte Percent A 0.5 % (0-0.5); Immature Platelet Fraction Pct 6.9 % (0.9-11.2); Lymphocytes Absolute Auto 0.79 K/mm3 (0.9-3.2); Lymphocytes Percent Auto 36.6 % (18.3-44.2); Mean Corpuscular HGB Conc 33.3 g/dl (32-36); Mean Corpuscular Hemoglobin 33.2 pg (26-34); Mean Corpuscular Volume 99.7 fl (80-100); Mean Platelet Volume 11.2 fl (7.4-10.4); Monocytes Absolute Auto 0.2 K/mm3 (0.1-0.6); Monocytes Percent Auto 8.8 % (2.6-8.5); Platelet Count Result 103 k/mm3 (150-375); Red Blood Count 3.67 M/mm3 (4.2-5.4); Red Cell Distribution Width 15.3 % (11.5-14.5); White Blood Count 2.2 K/mm3 (4.5-10.0)
[2019-10-03 18:23] LABS: Lactate Dehydrogenase 519 U/L (313-618)
[2019-10-03 21:27] VITALS: BP 129/81; PULSE 87; RESP 20; TEMP 36.3; O2SAT 100
[2019-10-04] MEDS: HYDROMORPHONE HCL 1 MG/ML INJ IV PUSH ×5 (02:11→17:24)
[2019-10-04 05:19] LABS: Basophils Percent Auto 0.9 % (0.2-1.2); Eosinophils Absolute Auto 0.1 K/mm3 (0-0.3); Eosinophils Percent Auto 4.8 % (0-4.4); Hematocrit 36.6 % (37.0-47.0); Hemoglobin 12.2 g/dL (12.0-15.0); Immature Platelet Fraction Pct 7.1 % (0.9-11.2); Lymphocytes Absolute Auto 0.91 K/mm3 (0.9-3.2); Lymphocytes Percent Auto 39.7 % (18.3-44.2); Mean Corpuscular HGB Conc 33.3 g/dl (32-36); Mean Corpuscular Volume 98.9 fl (80-100); Mean Platelet Volume 11.2 fl (7.4-10.4); Monocytes Absolute Auto 0.2 K/mm3 (0.1-0.6); Neutrophils Absolute Auto 1.1 K/mm3 (1.3-6.7); Neutrophils Percent Auto 47.6 % (45.5-73.1); Platelet Count Result 106 k/mm3 (150-375); Red Cell Distribution Width 15.3 % (11.5-14.5); White Blood Count 2.3 K/mm3 (4.5-10.0)
[2019-10-04] MEDS: GABAPENTIN 300 MG CAPSULE 600 MG PO ×4 (05:55→17:23)
[2019-10-04] MEDS: LORAZEPAM INJ 2 MG/ML VIAL 0.5 MG IV PUSH ×3 (05:57→18:07)
[2019-10-04 06:00] VITALS: BP 114/85; PULSE 73; RESP 16; TEMP 36.4; O2SAT 100
--- NOTE | 2019-10-04 07:06 | WPDGIPROGNO ---
Progress Note: A&P Additional Plan Patient alert and comfortable this morning. Less anxious. Tolerating full liquid diet without difficulty. No pain reported. Physical exam reveals Vital Signs to be stable. HEENT exam she is anicteric. Lungs are clear. Heart without murmur. Abdomen bowel sounds are present soft no localized tenderness evident. Labs improving. 1. Acute pancreatitis. Etiology unclear. This is her 3rd episode. We may want to consider elective cholecystectomy. No gallstones were identified by ultrasound. Consider surgery follow-up as an outpatient. Will advance to a low-fat diet today. 2. Elevated LFTs. Appear to be related to acute pancreatitis LFTs should be repeated as an outpatient to ensure they return to normal. 3. Pancreatic pseudocyst. Very small. Improving compared to previous CT scans. Would observe this conservatively at this time. Subjective Date/time seen: 10/04/19 07:06 Objective Data Vital Signs Vital Signs: Vital Signs - 24 hr 10/03/19 14:00 10/03/19 21:27 10/04/19 06:00 Temperature 36.8 C 36.3 C L 36.4 C Pulse Rate 73 87 73 Respiratory Rate 16 20 16 Blood Pressure 129/84 129/81 114/85 Pulse Oximetry 98 100 100 Intake/Output Intake/Output: Intake & Output 10/01/19 10/02/19 10/03/19 10/04/19 23:59 23:59 23:59 23:59 Intake Total 2206.5 4663.5 375 Output Total 950 3150 1800 Balance 1256.5 1513.5 -1425 Meds/Results Medications: Active Medications Generic Name Dose Route Start Last Admin Trade Name Freq PRN Reason Stop Dose Admin Gabapentin 600 mg 10/02/19 14:00 10/04/19 05:55 Neurontin PO 600 mg 5 X DAILY HEMAL Administration Hydromorphone HCl 1 mg 10/02/19 20:28 10/04/19 05:56 Dilaudid Inj IV PUSH 1 mg Q3H PRN Administration Pain Rated 7-10 Lorazepam 0.5 mg 10/02/19 12:16 10/04/19 05:57 Ativan Inj IV PUSH 0.5 mg Q6H PRN Administration Anxiety Metoclopramide HCl 10 mg 10/02/19 20:29 10/03/19 15:58 Reglan IV PUSH 10 mg Q6HR PRN Administration nausea/vomiting Nicotine 1 patch 10/02/19 09:00 10/03/19 07:34 Nicoderm Cq 21 Mg TRANSDERM 1 patch QAM HEMAL Administration Radiology Results: ITS Impressions Upper Quadrant Ultrasound 10/02/19 08:45 IMPRESSION: 1. Gallbladder distention without additional findings to suggest acute cholecystitis. 2. Diffuse hepatic steatosis. Labs Labs: Laboratory Results - last 24 hr 10/03/19 10/03/19 10/03/19 18:05 18:06 18:06 WBC 2.2 L RBC 3.67 L Hgb 12.2 Hct 36.6 L MCV 99.7 MCH 33.2 MCHC 33.3 RDW 15.3 H Plt Count 103 L MPV 11.2 H Immature Gran % (Auto) 0.5 Neut % (Auto) 48.0 Lymph % (Auto) 36.6 [place] % (Auto) 8.8 H Eos % (Auto) 5.6 H Baso % (Auto) 0.5 Lymph # (Auto) 0.79 L [place] # (Auto) 0.2 Eos # (Auto) 0.1 Baso # (Auto) 0.0 Abs Immat Gran (auto) 0.01 Absolute Neuts (auto) 1.0 L Absolute Nucleated RBC 0.0 Nucleated RBC % 0.0 % Immature Plt Fraction 6.9 Lactate Dehydrogenase 519 Vitamin B12 441.0 Folate 10.0 NAZ, IgG Interpret Negative NAZ, Poly Interpret Negative NAZ, Complement Interp Not Performed 10/04/19 04:52 WBC 2.3 L RBC 3.70 L Hgb 12.2 Hct 36.6 L MCV 98.9 MCH 33.0 MCHC 33.3 RDW 15.3 H Plt Count 106 L MPV 11.2 H Immature Gran % (Auto) 0.0 Neut % (Auto) 47.6 Lymph % (Auto) 39.7 [place] % (Auto) 7.0 Eos % (Auto) 4.8 H Baso % (Auto) 0.9 Lymph # (Auto) 0.91 [place] # (Auto) 0.2 Eos # (Auto) 0.1 Baso # (Auto) 0.0 Abs Immat Gran (auto) 0.00 Absolute Neuts (auto) 1.1 L Absolute Nucleated RBC 0.0 Nucleated RBC % 0.0 % Immature Plt Fraction 7.1 Lactate Dehydrogenase Vitamin B12 Folate NAZ, IgG Interpret NAZ, Poly Interpret NAZ, Complement Interp
[2019-10-04] MEDS: NICOTINE (*PBKC) 21 MG PATCH 1 PATCH TRANSDERM (09:05)
--- NOTE | 2019-10-04 09:24 | PM.IMPN ---
Progress Note: A&P Assessment and Plan (1) Acute pancreatitis: Qualifiers: Acute pancreatitis complication: unspecified Pancreatitis type: unspecified pancreatitis type Qualified Code(s): K85.90 - Acute pancreatitis without necrosis or infection, unspecified Code(s): K85.90 - Acute pancreatitis without necrosis or infection, unspecified Status: Acute Assessment and Plan: CT scan showing mild acute pancreatitis with Lipase at 1080. CT scan also showing small pseudocyst in the tail of the pancreas but smaller than in August. TG level normal. RUQ US showing distended GB but otherwise normal. Lipase pending today. Abd pain better and tolerating oral intake. Continue Diludid for pain but decrease frequency. Ativan available as an adjunct treatment for pain. Possibly home tomorrow if does well with meals. (2) Elevated liver enzymes: Code(s): R74.8 - Abnormal levels of other serum enzymes Status: Acute Assessment and Plan: AST 260 and ALT 275 on admission. Secondary to acute pancreatitis. Repeat LFTs pending. Continue to monitor. (3) Dehydration: Code(s): E86.0 - Dehydration Status: Acute Assessment and Plan: Resolved. (4) Pseudocyst of pancreas: Code(s): K86.3 - Pseudocyst of pancreas Status: Acute Assessment and Plan: As above. Decreasing in size and may be too small to drain. (5) Seizure: Code(s): R56.9 - Unspecified convulsions Status: Chronic Assessment and Plan: Stable. Gabapentin has been resumed. Dose was verified with patient and with her pharmacy. (6) Tobacco dependence: Code(s): F17.200 - Nicotine dependence, unspecified, uncomplicated Status: Chronic Assessment and Plan: Patient has been counseled regarding nicotine cessation. Nicotine patch started. (7) Leukopenia: Qualifiers: Leukopenia type: unspecified Qualified Code(s): D72.819 - Decreased white blood cell count, unspecified Code(s): D72.819 - Decreased white blood cell count, unspecified Status: Acute Assessment and Plan: Mild persistent leukopenia. B12 level normal. LDH normal. Ky negative. KIKI pending. Continue to monitor. (8) Thrombocytopenia: Code(s): D69.6 - Thrombocytopenia, unspecified Status: Acute Assessment and Plan: Patient with acute TCP. This has been noted her prior hospitalization. Spleen normal so doubt sequestering. No obvious Heparin exposure. test is negative. Viral? Consumptive? SLE?. Platelet count improving. As above. Continue to monitor for now. (9) DVT prophylaxis: Code(s): Z29.9 - Encounter for prophylactic measures, unspecified Status: Acute Assessment and Plan: SCDs Subjective Date/time seen: 10/04/19 09:24 Interval history: 34yo female with hx of pancreatitis here for abd pain and found to have recurrent pancreatitis. still with abd pain but better. No n/v with eating. Abd feels 'tight' after eating. No bowel movements. Positive flatus. Slept off and on last night. Exam Narrative: Exam Narrative: Gen - NARD Chest - CTA bilaterally, nml RR CV - RRR S1/S2 Abd -soft. Nondistended. Mild diffuse tenderness with minimal guarding now. Ext - No pedal edema Psych - Nml mood and affect Skin - Warm and dry Objective Data Vital Signs Vital Signs: Vital Signs - 24 hr 10/03/19 14:00 10/03/19 21:27 10/04/19 06:00 Temperature 98.2 F 97.3 F L 97.6 F Pulse Rate 73 87 73 Respiratory Rate 16 20 16 Blood Pressure 129/84 129/81 114/85 Pulse Oximetry 98 100 100 Intake/Output Intake/Output: Intake & Output 10/01/19 10/02/19 10/03/19 10/04/19 23:59 23:59 23:59 23:59 Intake Total 2206.5 4663.5 735 Output Total 950 3150 1800 Balance 1256.5 1513.5 -1065 Meds/Results Medications: Active Medications Generic Name Dose Route Start Last Ad
[2019-10-04] MEDS: PANTOPRAZOLE 40 MG TABLET PO (10:34)
[2019-10-04 12:48] LABS: Alanine Aminotransferase 166 U/L (4-35); Albumin Level 4.1 g/dL (3.5-5.1); Alkaline Phosphatase 168 U/L (38-126); Aspartate Amino Transferase 191 U/L (14-36); Bilirubin,Total 1.1 mg/dL (0.2-1.3); Blood Urea Nitrogen 6 mg/dL (7-17); Calcium 9.1 mg/dL (8.4-10.2); Carbon Dioxide 22 mmol/L (22-30); Chloride 104 mmol/L (98-107); Estimated CRCL calculation 118 ml/min; Estimated Glomerular Filt Rate > 60; Glucose 155 mg/dL (65-105); Lipase 547 U/L (23-300); Potassium 4.1 mmol/L (3.4-5.0); Sodium 136 mmol/L (137-145)
[2019-10-04 12:57] LABS: Iron 107 ug/dL (37-170)
[2019-10-04 13:06] LABS: Percent Iron Saturation 30 % (20-50)
[2019-10-04 13:24] LABS: HAV RESULT Negative (Negative)
[2019-10-04 13:28] LABS: HIV 1/2 Ab P24 Ag Result Negative (Negative)
[2019-10-04 13:31] LABS: Hepatitis B Surface Antigen Negative (Negative)
[2019-10-04 14:00] VITALS: BP 129/90; PULSE 78; RESP 16; TEMP 36.3; O2SAT 99
[2019-10-04 14:09] LABS: Hepatitis B Core IgM Result Negative (Negative); Hepatitis B Surface Anti Res Positive; Hepatitis C Virus Antibody Negative (Negative)
--- NOTE | 2019-10-04 21:07 | PC.NURSE ---
Removed pt's IV access. She is signing out AMA. Nursing supervisor instrument repair at bedside and she still wants to leave. Pt demanding IV out and she is leaving. Pt grabbed her belongings and got on elevator and left. She stated she had a ride.
[2019-10-05 03:59] LABS: Immunoglobulin G, Serum 1058 mg/dL (600-1640); Immunoglobulin G1 579 mg/dL (382-929); Immunoglobulin G2 325 mg/dL (241-700); Immunoglobulin G3 68 mg/dL (22-178); Immunoglobulin G4 101.4 mg/dL (4.0-86.0)
[2019-10-06 16:22] LABS: Heparin Induced Platelet Antib Negative (Negative)
--- NOTE | 2019-10-06 19:42 | PM.DS ---
DS: Diagnosis Admitting Diagnosis Admitting Diagnosis: Acute pancreatitis without necrosis or infection, unspecified Discharge Diagnosis (1) Acute pancreatitis: Qualifiers: Acute pancreatitis complication: unspecified Pancreatitis type: unspecified pancreatitis type Qualified Code(s): K85.90 - Acute pancreatitis without necrosis or infection, unspecified Code(s): K85.90 - Acute pancreatitis without necrosis or infection, unspecified Status: Acute Assessment and Plan: CT scan showing mild acute pancreatitis with Lipase at 1080. CT scan also showing small pseudocyst in the tail of the pancreas but smaller than in August. TG level normal. RUQ US showing distended GB but otherwise normal. Lipase pending today. Abd pain better and tolerating oral intake. IgG4 elevated but KIIK negative. MRCP ordered but patient signed out against medical advise. (2) Elevated liver enzymes: Code(s): R74.8 - Abnormal levels of other serum enzymes Status: Acute Assessment and Plan: AST 260 and ALT 275 on admission. Secondary to acute pancreatitis. Repeat LFTs better. (3) Dehydration: Code(s): E86.0 - Dehydration Status: Acute Assessment and Plan: Resolved. (4) Pseudocyst of pancreas: Code(s): K86.3 - Pseudocyst of pancreas Status: Acute Assessment and Plan: As above. Decreasing in size and may be too small to drain. (5) Seizure: Code(s): R56.9 - Unspecified convulsions Status: Chronic Assessment and Plan: Stable. Gabapentin was resumed. Dose was verified with patient and with her pharmacy. (6) Tobacco dependence: Code(s): F17.200 - Nicotine dependence, unspecified, uncomplicated Status: Chronic Assessment and Plan: Patient has been counseled regarding nicotine cessation. Nicotine patch started. (7) Thrombocytopenia: Code(s): D69.6 - Thrombocytopenia, unspecified Status: Acute Assessment and Plan: Patient with acute TCP. This has been noted her prior hospitalization. Spleen normal so doubt sequestering. No obvious Heparin exposure. test is negative. HIV and hepatits negative. (8) Leukopenia: Qualifiers: Leukopenia type: unspecified Qualified Code(s): D72.819 - Decreased white blood cell count, unspecified Code(s): D72.819 - Decreased white blood cell count, unspecified Status: Acute Assessment and Plan: Mild persistent leukopenia. B12 level normal. LDH normal. Ky negative. KIKI negative. Continue to monitor. DS: Summary Hospital Course Reason for hospitalization: 34yo female here for pancreatitis. Please see H&P for details. Hospital Course: As above Time Spent with Patient Time attestation: Total time spent providing and/or coordinating discharge services:35 minutes Time spent: Greater than 30 minutes Exam Narrative: Exam Narrative: Gen - NARD Chest - CTA bilaterally, nml RR CV - RRR S1/S2 Abd -soft. Nondistended. Mild diffuse tenderness with minimal guarding now. Ext - No pedal edema Psych - Nml mood and affect Skin - Warm and dry DS: Data Data Completed and Pending Labs on day of discharge: Labs from last 24 hours 10/03/19 18:06 Heparin-induced Plt Ab Negative Hep-Induced Plt Ab Cmmt 0.080 Discharge Plan Discharge Attending physician on discharge: Glen Contreras Consulting providers: Yassine Lovett ; Marcello Paul Discharging Clinician: Glen Contreras Patient Disposition: Left Against Medical Advice Patient Instructions: How to Stop Smoking (DC) Discharge Medications: No Action gabapentin 300 mg Capsule 600 mg PO DIRECTED RF: 0 Date of admission: 10/02/19 00:03 Primary Care Provider: UNKNOWN,DOCTOR Admitting Provider: Dayday Naylor Discharge Date/Time: 10/04/19 23:10 Attending physician on admission: Ian Contreras
[2019-10-06 19:45] LABS: Hepatitis B Core Ab Total Nonreactive (Nonreactive)
[2019-10-07 19:45] LABS: Ceruloplasmin 35 mg/dL (18-53)
--- NOTE | 2019-10-13 13:17 | PC.NURSE ---
A1AT- phenotype is PI*MM. Results given to Dr. Contreras. Patient has no PCP.
== END 2019-10-04 23:10 | disposition left against medical advice (07) | DRG 282 ==
PROVIDERS: Admitting Provider Family Medicine; Visit Provider Internal Medicine
DX: K85.90 Acute pancreatitis without necrosis or infection, unspecified (principal); M79.7 Fibromyalgia; F41.8 Other specified anxiety disorders; M54.30 Sciatica, unspecified side; R56.9 Unspecified convulsions; F17.210 Nicotine dependence, cigarettes, uncomplicated; E86.0 Dehydration; K86.3 Pseudocyst of pancreas; D69.6 Thrombocytopenia, unspecified
CPT/HCPCS: 36415; 76705; 80048; 80053; 80061; 82103; 82390; 82607; 82728; 82746; 82784; 82787; 83540; 83550; 83605; 83615; 83690; 83735; 84702; 85025; 85027; 85055; 86022; 86023; 86038; 86703; 86704; 86705; 86706; 86709; 86803; 86880; 87340; A9270; G0432; J1170; J2060; J2405; J2765; J7030

== ENCOUNTER 2019-12-14 18:16 | Emergency (ER) | payer MEDICAID, SELFPAY ==
[2019-12-14] MEDS: TETANUS,DIPHTHERIA,AC PERTUSSIS ADULT 0.5 ML (ADACEL) IM (18:30)
[2019-12-14 18:39] VITALS: BP 136/91; PULSE 105; RESP 20; TEMP 36.8; O2SAT 98
--- NOTE | 2019-12-14 19:22 | ED.UPPEXIN ---
HPI - Extremity Injury (Upper) General Chief Complaint: Extremity Injury, Upper Stated Complaint: injury to finger Source: patient Mode of arrival: ambulatory Limitations: no limitations History of Present Illness HPI narrative: This is a 34-year-old female that presents with a laceration to the fat pad of her left 4th index finger it the flap laceration that is bleeding, currently earlier today after she was trying to open a can and inadvertently caused a laceration to her left 4th finger. Currently no numbness has good range of motion. complaint: injury to: left and finger Other Extremity Injury: Left: fingers (4th) Other injuries: none Handedness: right Severity: mild Relieving factors: none Exacerbating factors: none Context: injury Related Data Home Medications Medication Instructions Recorded Confirmed gabapentin 600 mg PO DIRECTED 10/02/19 12/14/19 cyclobenzaprine 10 mg PO TID PRN 12/14/19 12/14/19 levonorgestrel [Mirena] 1 device INTRAUTERINE ONCE 12/14/19 12/14/19 Allergies Allergy/AdvReac Type Severity Reaction Status Date / Time hydrocodone AdvReac Severe THROAT Verified 09/03/19 14:21 SHANNAN Review of Systems Review of Systems: All systems reviewed & are unremarkable except as noted in HPI and below PMFSH Past Medical History Medical History Anxiety Depression Fibromyalgia Pancreatic pseudocyst Pancreatitis Sciatica Seizure Thrombus Surgical History Surgical History History of esophagogastroduodenoscopy (EGD) Family History Family History Mother Diabetes mellitus Grandparent Parkinson disease Social History Social History Years smoked: 10 Smoking status: Current every day smoker Tobacco type: cigarettes Second hand tobacco smoke exposure: Yes Alcohol intake: never Substance use: never Substance use type: does not use Gender identity (if verbalized by the patient): Female Spiritual care concerns: No Agree to blood products: Yes Exam Const: General: no acute distress and alert Orientation/consciousness: patient oriented x3 HENMT: Head: normal to inspection Eyes: Conjunctivae: conjunctivae normal Pupils: Equal, round and reactive pupils present EOM: EOMs intact bilaterally Neck: Neck: normal visual inspection, no lymphadenopathy and no meningeal signs Chest: Chest palpation & inspection: normal inspection of the chest Resp: Effort & Inspection: normal respiratory effort Auscultation: clear to auscultation bilaterally Cardio: Rate: regular rate Rhythm: regular rhythm GI: GI Palp: Yes Soft to palpation : General: Yes no CVA tenderness Skin: Wounds: wounds noted ( Flap laceration on the palmar surface of the distal left 4th finger) Neuro: General: patient oriented x3 and moves all extremities Course Course Emergency Course: patient advised to hold pressure with gauze and re-evaluated the finger laceration which is a flap laceration and the patient opted to have a Dermabond placed after the bleeding subsided. Vital Signs Vital signs: Vital Signs Temperature 36.8 C 12/14/19 18:39 Pulse Rate 105 H 12/14/19 18:39 Respiratory Rate 12/14/19 18:39 Blood Pressure 136/91 H 12/14/19 18:39 Pulse Oximetry 98 12/14/19 18:39 Temperature 36.8 C 12/14/19 18:39 Pulse Rate 105 H 12/14/19 18:39 Respiratory Rate 12/14/19 18:39 Blood Pressure 136/91 H 12/14/19 18:39 Pulse Oximetry 98 12/14/19 18:39 Procedures Laceration Laceration 1: Date: 12/14/19 Time: 19:25 Site: upper extremity Side (If applicable): left Size (cm): 2.5 Description: other ( Flap laceration) ====== Skin Level ====== Skin layer closed with: dermabond ==
== END 2019-12-14 19:43 | disposition home or self-care (01) ==
PROVIDERS: Emergency Provider Emergency Medicine; PCP Family Medicine
DX: S61.215A Laceration without foreign body of left ring finger without damage to nail, initial encounter (principal); W26.8XXA Contact with other sharp object(s), not elsewhere classified, initial encounter
CPT/HCPCS: 12001; 90471; 90715; 99282

== ENCOUNTER 2020-03-21 18:17 | Emergency (ER) | payer OTHER, SELFPAY ==
--- NOTE | ~2020-03-21 | CT_ITS ---
EXAMINATION: CT abdomen pelvis w con DATE: 03/21/2020 19:46 INDICATION: One day of mid abdominal pain. TECHNIQUE: Computed tomography (CT) of the abdomen and pelvis was performed with 100 mL Omnipaque-350 intravenous contrast. Automated exposure control and iterative reconstruction technique were employe d. The dose-length product was 275.56 mGy-cm. COMPARISON: 10/01/2019 FINDINGS: Lung bases are clear. Heart size is normal. No pericardial or pleural effusion. Diffuse hepatic steat osis with scattered peripheral focal strandy sparing. Postoperative change of relatively recent zenon cystectomy with surgical clips and minimal stranding at the gallbladder fossa. Subtle haziness along a couple laparoscopy tracts in the anterior abdominal wall. Biliary stent extends from the jose a hepa tis across the common bile duct with distal tip in the second portion of the duodenum. No intra or ex trahepatic biliary ductal dilation. No biloma, abscess or free intraperitoneal fluid. Continued decre ase in size of a now 1.1 cm pseudocyst at the pancreatic tail. The previously seen peripancreatic inf lammatory stranding has resolved. Spleen, bilateral adrenal glands and kidneys are normal. Bowels inc luding the appendix are normal. Bladder is normal. IUD in expected position within the anteverted [place]. Bilateral adnexa are unremarkable. No pathologically enlarged abdominal or pelvic lymphadenopath y. Bones are unremarkable. IMPRESSION: 1. Expected appearance post laparoscopic cholecystectomy with biliary stent placement. No intra or ex tra hepatic biliary ductal dilation or other acute intra-abdominal/pelvic process. 2. Continued decrease in size of a now 1.1 cm pseudocyst at the pancreatic tail. 3. Diffuse hepatic steatosis. Reviewed, dictated and finalized at location A. IMPRESSION: 1. Expected appearance post laparoscopic cholecystectomy with biliary stent fazal cement. No intra or extra hepatic biliary ductal dilation or other acute intra- abdominal/pelvic process. 2. Continued decrease in size of a now 1.1 cm pseudocyst at the pancreatic tail . 3. Diffuse hepatic steatosis.
[2020-03-21 18:20] VITALS: BP 124/85; PULSE 74; RESP 16; TEMP 36.4; O2SAT 100
[2020-03-21 18:40] LABS: Add Urine Microscopic? YES; Appearance Urine Sl Cloudy (Clear); Bilirubin Urine 2+ (Negative); Blood Urine Negative (Negative); Color Urine Amber (Yellow); Glucose Urine UA Negative (Negative); Ketones Urine 1+ (Negative); Leukocyte Esterase Ur Negative LEU/UL (Negative); Nitrate Urine Negative (Negative); Protein Urine Negative (Negative); Specific Grav Ur 1.025 (1.010-1.020); pH Urine 5.5 (5.0-8.0)
[2020-03-21 18:43] LABS: Pregnancy On Board Control Positive; Urine Pregnancy Test Negative
[2020-03-21 18:52] LABS: Basophils Absolute Auto 0.03 K/mm3 (0.00-0.10); Basophils Percent Auto 0.5 % (0.0-1.0); Eosinophils Absolute Auto 0.21 K/mm3 (0.02-0.50); Eosinophils Percent Auto 3.8 % (1.0-6.0); Hematocrit 39.3 % (35.0-49.0); Hemoglobin 13.5 g/dL (12.0-15.0); Immature Granulocyte Absolute 0.01 K/mm3 (0.00-0.00); Immature Granulocyte Percent A 0.2 % (0.0-0.0); Lymphocytes Absolute Auto 1.52 K/mm3 (1.10-4.50); Lymphocytes Percent Auto 27.2 % (18.0-42.0); Mean Corpuscular HGB Conc 34.4 g/dL (32.0-36.0); Mean Corpuscular Hemoglobin 34.4 pg (27.0-31.0); Mean Platelet Volume 11.7 fl (9.2-11.8); Monocytes Absolute Auto 0.37 K/mm3 (0.10-0.90); Monocytes Percent Auto 6.6 % (2.0-11.0); Neutrophils Absolute Auto 3.5 K/mm3 (1.7-7.2); Neutrophils Percent Auto 61.7 % (50.0-70.0); Platelet Count Result 291 K/mm3 (150-420); Red Blood Count 3.93 M/mm3 (4.20-5.40); Red Cell Distribution Width 13.2 % (11.6-14.4); White Blood Count 5.6 K/mm3 (4.8-10.8)
--- NOTE | 2020-03-21 18:52 | ED.ABDPAIN ---
HPI - Abdominal Pain General Chief Complaint: Abdominal Pain Stated Complaint: ABD PAIN AFTER SURGERY Time Seen by Provider: 03/21/20 18:52 History of Present Illness HPI narrative: 34-year-old female patient is here with chief complaints of upper abdominal pain since 4:00 a.m. this morning. The patient states that she has had a recent lap cholecystectomy with stent placement in biliary tree done on March 12 in [facility]. She states that she was also diagnosed with liver cirrhosis at the time after they did the biopsy. Her surgery has been uneventful. She was in [facility] until yesterday evening and doing reasonably well. She did have full some chicken noodle soup last night and then this morning she started experiencing pain that she localizes to the epigastric area without any radiation. She states that she has been nauseated and has had several emesis. Denies any diarrhea. Denies any fever or chills. She denies any urinary symptoms. Her last bowel movement was yesterday. The patient is scheduled to follow-up with her primary care physician in next 3 days. Patient states that she was given Dilaudid while she was inpatient at the hospital and was sent home with oxycodone which she has finished. She does report allergies to hydrocodone. Patient states that she has had a longstanding history of alcohol abuse between ages 15 and 29 and has been dry since then. She denies any recreational drugs. She is a smoker. Related Data Hx Last Menstrual Period: Years ago, has an IUD in place . Home Medications Medication Instructions Recorded Confirmed levonorgestrel [Mirena] 1 device INTRAUTERINE ONCE 12/14/19 03/21/20 pantoprazole 40 mg PO DAILY 03/21/20 03/21/20 Allergies Allergy/AdvReac Type Severity Reaction Status Date / Time hydrocodone AdvReac Severe THROAT Verified 09/03/19 14:21 SHANNAN Review of Systems Review of Systems: All systems reviewed & are unremarkable except as noted in HPI and below Constitutional: Constitutional: Denies chills, Denies fatigue, Denies fever(s) and Denies weakness Eyes: Eyes: Reports no additional eye complaints ENT: Reports system reviewed and no additional complaints, except as documented Cardiovascular: Cardiovascular: Reports no additional cardiovascular complaints and Denies chest pain Respiratory: Respiratory: Reports no additional respiratory complaints, Denies chest congestion, Denies cough, Denies dyspnea and Denies wheezing Gastrointestinal: Gastrointestinal: Reports as per HPI and Reports no additional gastrointestinal complaints Genitourinary: Genitourinary: Reports no additional female genitourinary complaints Musculoskeletal: Musculoskeletal: Reports no additional musculoskeletal complaints Integumentary/Breasts: Skin/Breast: Reports system reviewed and no additional complaints, except as docu Neurologic: Reports system reviewed and no additional complaints, except as documented Psychiatric: Psychiatric: Reports no additional psychiatric complaints Endocrine: Endocrine: Reports no additional endocrine complaints Hematologic/Lymphatic: Hematologic/Lymphatic: Reports no additional hematologic/lymphatic complaints PMFSH Past Medical History Medical History (Updated 03/21/20 @ 21:04 by Lara Grajeda MD) Anxiety Depression Fibromyalgia Pancreatic pseudocyst Pancreatitis Sciatica Seizure Thrombus Surgical History Surgical History (Updated 03/21/20 @ 19:43 by Lara Grajeda MD) History of esophagogastroduodenoscopy (EGD) Hx laparoscopic cholecystectomy Family History Family History Mother Diabetes mellitus Grandparent Parkinson disease Social History Social History Years smoked: 10 Smoking status: Current every day smoker Tobacco type: cigarettes Second hand tobacco smoke exposure: Yes Alcohol intake: never Substance use: never Substa
[2020-03-21 18:55] LABS: Bacteria Urine Trace /hpf; Mucus Urine Rare /lpf; RBC Urine None seen /hpf (0-2); Squamous Epithelial Cell Urine Few /hpf (Few); WBC Urine None seen /hpf (0-3)
[2020-03-21 19:02] LABS: Amphetamine Screen Urine Positive (Negative); Barbiturate Screen Urine Negative (Negative); Benzodiazepines Screen Urine Negative (Negative); Cannabinoid Screen Urine Negative (Negative); Cocaine Screen Urine Negative (Negative); Methadone Screen Urine Negative (Negative); Opiate Screen Urine Negative (Negative); Phencyclidine Screen Urine Negative (Negative)
[2020-03-21 19:06] LABS: Alanine Aminotransferase 122 U/L (14-59); Albumin Level 3.5 g/dL (3.4-5.0); Alkaline Phosphatase 161 U/L (46-116); Anion Gap 15 mmol/L (8-16); Aspartate Amino Transferase 78 U/L (15-37); Bilirubin,Total 1.2 mg/dL (0.00-1.00); Blood Urea Nitrogen 9 mg/dL (7-18); Calcium 9.3 mg/dL (8.5-10.1); Carbon Dioxide 19 mmol/L (21-32); Chloride 101 mmol/L (98-108); Estimated Glomerular Filt Rate > 60; Glucose 169 mg/dL (70-99); Lipase 67 U/L (73-393); Osmolality Calculated 282 mOsm/kg (285-295); Potassium 3.3 mmol/L (3.5-5.1); Sodium 135 mmol/L (136-145); Total Protein 7.5 g/dL (6.4-8.2)
[2020-03-21] MEDS: SODIUM CHLORIDE 0.9% IV 1,000 ML 999 ML IV CONT (19:06)
[2020-03-21] MEDS: METOCLOPRAMIDE HCL INJ 10 MG/2 ML VIAL IV PUSH (19:06)
[2020-03-21] MEDS: MORPHINE SULFATE (*CRX) 2 MG/ML INJ IV PUSH (19:07)
[2020-03-21] MEDS: PANTOPRAZOLE SODIUM IV 40 MG VIAL IV PUSH (19:55)
[2020-03-21] MEDS: LACTATED RINGERS 1,000 ML 999 ML IV CONT (20:20)
[2020-03-21] MEDS: MAG HYDROX/ALUMINUM HYD/SIMETH 30 ML, PHENobarb/HYOSCY/ATROPINE/SCOP 32.4 MG, LIDOCAINE... PO (20:36)
[2020-03-21] MEDS: KETOROLAC 30 MG/ML VIAL (*BKC) IV PUSH (20:36)
[2020-03-21 21:07] VITALS: BP 114/80; PULSE 65; O2SAT 97
== END 2020-03-21 21:11 | disposition home or self-care (01) ==
PROVIDERS: Emergency Provider Emergency Medicine
DX: K29.00 Acute gastritis without bleeding (principal)
CPT/HCPCS: 36415; 74177; 80053; 80307; 81001; 81025; 83690; 85025; 96361; 96374; 96375; 99284; A9270; C9113; J1885; J2270; J2765; J7030; J7120; Q9965

== ENCOUNTER 2020-04-16 13:21 | Emergency (ER) | payer OTHER, SELFPAY ==
--- NOTE | ~2020-04-16 | XR_ITS ---
XR hand RT min 3V DATE: 04/16/2020 14:26 INDICATION: Dog bite of third digit 2 days ago. Swelling, redness, pain TECHNIQUE: 3 views COMPARISON: None FINDINGS: There is mild soft tissue swelling of the third digit. No fracture or dislocation, perioste al reaction or bone destruction. No radiopaque soft tissue foreign body or subcutaneous emphysema. IMPRESSION: Mild third digit soft tissue swelling; no fracture, dislocation or radiopaque foreign bod y or subcutaneous emphysema Reviewed, dictated and finalized at location A. IMPRESSION: Mild third digit soft tissue swelling; no fracture, dislocation or radiopaque foreign body or subcutaneous emphysema
[2020-04-16 13:37] VITALS: BP 118/77; PULSE 119; RESP 18; TEMP 36.6; O2SAT 95
--- NOTE | 2020-04-16 13:39 | ED.ANIMALBIT ---
HPI - Animal Bite General Chief Complaint: Animal Bite Stated Complaint: dog bit middle finger two days ago Time Seen by Provider: 04/16/20 13:49 Source: patient Mode of arrival: ambulatory Limitations: no limitations History of Present Illness HPI narrative: 34-year-old woman comes in today complaining of pain and swelling particularly on her right long finger. She was bit by a dog on the 13 of April. She states that she has had progressive worse pain and swelling. She denies numbness, fever, vomiting and chills. She states she had a tetanus shot 1 year ago. She states that is very painful to move her finger. complaint: animal bite Onset (ago): day(s) (3) Animal: dog Description of animal: unknown animal Mechanism: bite Location - Extremities: Right: hand Pain description: sharp Context: other ( Helping on another person with her dog.) Associated symptoms: erythema and discharge from wound Related Data Patient tetanus UTD: Yes Home Medications Medication Instructions Recorded Confirmed levonorgestrel [Mirena] 1 device INTRAUTERINE ONCE 12/14/19 04/16/20 Allergies Allergy/AdvReac Type Severity Reaction Status Date / Time hydrocodone AdvReac Severe THROAT Verified 04/16/20 13:34 SWELLS Review of Systems Constitutional: Constitutional: Denies chills and Denies fever(s) Respiratory: Respiratory: Denies cough and Denies dyspnea Gastrointestinal: Gastrointestinal: Denies abdominal pain, Denies nausea and Denies vomiting Musculoskeletal: Musculoskeletal: Reports arthralgias and Reports joint swelling Integumentary/Breasts: Skin/Breast: Reports erythema Neurologic: Denies vertigo, Denies dizziness and Denies syncope Hematologic/Lymphatic: Hematologic/Lymphatic: Denies easy bleeding and Denies easy bruising Allergic/Immunologic: Allergic/Immunologic: Denies lip swelling and Denies wheezing PMFSH Past Medical History Medical History Alcoholic cirrhosis Anxiety Depression Fibromyalgia GERD (gastroesophageal reflux disease) History of acute pancreatitis Pancreatic pseudocyst Pancreatitis Sciatica Thrombus Surgical History Surgical History History of esophagogastroduodenoscopy (EGD) Hx laparoscopic cholecystectomy Family History Family History Mother Diabetes mellitus Grandparent Parkinson disease Social History Social History (Updated 04/16/20 @ 14:22 by Dayday Vasquez MD) Years smoked: 10 Smoking status: Current every day smoker Tobacco type: cigarettes Second hand tobacco smoke exposure: Yes Substance use: never Substance use type: does not use Gender identity (if verbalized by the patient): Female Spiritual care concerns: No Agree to blood products: Yes Exam Const: General: healthy appearing and alert Orientation/consciousness: patient oriented x3 Other: Moderate acute distress. Eyes: Conjunctivae: conjunctivae normal EOM: EOMs intact bilaterally Resp: Effort & Inspection: normal respiratory effort and not labored Auscultation: clear to auscultation bilaterally, no rales, no rhonchi and no wheezes Cardio: Rate: regular rate Rhythm: regular rhythm Heart sounds: no murmurs Skin: General skin exam: no jaundice and no pallor Rashes: no rashes Other: There is a healing wound over the dorsal aspect of the DIP of the right long finger. minimal swelling or drainage at the wound site however there is circumferential swelling over the middle phalanx and tenderness to palpation along the extensor tendons all the way up to the wrist. There is minimal swelling over the dorsal hand. Neuro: General: patient oriented x3, moves all extremities, no focal motor deficits and CN's II-XI intact bilaterally Speech: normal speech Gait exam (Neuro): Normal gait present Extrem: General: normal t
[2020-04-16] MEDS: HYDROmorphone HCL INJ (*CRX) 2 MG/ML VIAL 0.5 MG IV PUSH (14:57)
--- NOTE | 2020-04-16 14:58 | PHAR ---
04/16/20: spoke with dr. shin regarding pt.'s allergy to hydrocodone. hydromorphone ordered. he notes pt takes percocet fine at home and tolerates.
[2020-04-16] MEDS: AMPICILLIN SULB 3 GM/NS 100 ML 3 GM/100 ML VIAL IVPB (14:59)
[2020-04-16] MEDS: ONDANSETRON INJ 4 MG/2 ML VIAL IV PUSH (15:03)
[2020-04-16 15:35] VITALS: BP 138/74; PULSE 92; RESP 18; TEMP 36.8; O2SAT 95
== END 2020-04-16 15:35 | disposition home or self-care (01) ==
PROVIDERS: Emergency Provider Emergency Medicine; PCP Family Medicine
DX: L08.9 Local infection of the skin and subcutaneous tissue, unspecified (principal); S61.252A Open bite of right middle finger without damage to nail, initial encounter; W54.0XXA Bitten by dog, initial encounter
CPT/HCPCS: 73130; 96365; 96375; 99283; 99284; J0295; J1170; J2405

== ENCOUNTER 2020-08-14 16:07 | Emergency (ER) | payer OTHER, SELFPAY ==
--- NOTE | ~2020-08-14 | CT_ITS ---
EXAMINATION: CT abdomen pelvis w con DATE: 08/14/2020 20:33 INDICATION: Vomiting. Left abdominal pain. TECHNIQUE: Computed tomography (CT) of the abdomen and pelvis was performed with 100 mL Omnipaque 350 intravenous contrast. Automated exposure control and iterative reconstruction technique were employe d. The dose-length product was 274.82 mGy-cm. COMPARISON: CT abdomen and pelvis 03/21/20 FINDINGS: The visualized portions of the lung bases demonstrate mild atelectasis. No pleural effusion . The heart size is normal. No pericardial effusion. There is diffuse hepatic steatosis. There are ch anges of cholecystectomy. The spleen is normal. There are calcifications in the head of the pancreas, consistent with chronic pancreatitis. There is a 1.7 cm cystic lesion in the tail of the pancreas, c onsistent with a pseudocyst. The adrenal glands and kidneys are normal. There is an intrauterine sacha ce in expected position. There are no dilated loops of bowel. The appendix is normal. There are no pa thologically enlarged lymph nodes. There is no free intraperitoneal fluid. In the left buttock, there is subcutaneous fat stranding with foci of gas, which may be an injection site. There is mild thorac olumbar spondylosis. IMPRESSION: 1. Diffuse hepatic steatosis. 2. Chronic pancreatitis. Reviewed, dictated and finalized at location A. ENCE TECHNICIAN
--- NOTE | 2020-08-14 16:24 | ECG_ITS ---
Measurements Intervals [place] Rate: 83 P: 58 ID: 161 QRS: 70 QRSD: 88 T: 40 QT: 373 QTc: 438 Interpretive Statements SINUS RHYTHM DELAYED PRECORDIAL R/S TRANSITION BORDERLINE T WAVE ABNORMALITY- ANTERIOR LEADS BASELINE ARTIFACT- V4-V6 BORDERLINE ECG Electronically Signed On 08-16-2020 8:09:45 [employer] SOURCE COLLECTION MANAGER by Demarcus Michel D.O.
--- NOTE | 2020-08-14 16:28 | PC.NURSE ---
BS 118
--- NOTE | 2020-08-14 16:58 | ED.SEIZURE ---
HPI - Seizure General Chief Complaint: Seizure Stated Complaint: ambulance Time Seen by Provider: 08/14/20 16:58 Source: patient and EMS Mode of arrival: EMS Limitations: no limitations History of Present Illness HPI Narrative: 35-year-old woman with a history of seizures brought in by EMS today after she had a seizure at home. She told her family member who insisted that she call the ambulance or he would call 911. She is unsure of the duration her seizure. She states that she has a long history of seizures that was treated with Keppra until she was weaned off of it several years ago. She states that she has had 5 seizures since she was weaned off of it. Patient states she has had cloudy urine and painful urination, chest pain, cough or cold symptoms, epigastric pain, and vomiting for the last 3 days. She states she has a history of chronic pancreatitis. She denies head injury, fever, blood in her stools , alcohol, drugs, neck stiffness, and rash. MD complaint: seizure Onset (ago): hour(s) (1) Description of Episode: loss of consciousness Witnessed: No Trauma: No Seizure History: Yes Place: home Possible Precipitating Event: none Associated symptoms: chest pain and cough Treatments prior to arrival: none Related Data Home Medications Medication Instructions Recorded Confirmed levonorgestrel [Mirena] 1 device INTRAUTERINE ONCE 12/14/19 08/14/20 Allergies Allergy/AdvReac Type Severity Reaction Status Date / Time hydrocodone AdvReac Severe THROAT Verified 04/16/20 13:34 SHANNAN Review of Systems Constitutional: Constitutional: Denies chills and Denies fever(s) Eyes: Eyes: Denies change in vision and Denies photophobia ENT: Denies dysphagia, Reports nasal congestion and Denies sore throat Cardiovascular: Cardiovascular: Reports chest pain and Reports radiating jaw, neck or arm pain Respiratory: Respiratory: Reports cough and Denies wheezing Gastrointestinal: Gastrointestinal: Reports abdominal pain, Denies diarrhea, Reports nausea and Reports vomiting Comments: Denies hematochezia and melena. Genitourinary: Genitourinary: Reports hematuria, Reports nocturia and Reports dysuria Musculoskeletal: Musculoskeletal: Denies arthralgias and Denies joint swelling Integumentary/Breasts: Skin/Breast: Denies pruritus, Denies erythema and Denies rash Neurologic: Denies vertigo, Denies dizziness and Denies syncope Hematologic/Lymphatic: Hematologic/Lymphatic: Denies easy bleeding and Denies easy bruising Allergic/Immunologic: Allergic/Immunologic: Denies lip swelling and Denies throat swelling PMF Past Medical History Medical History Alcoholic cirrhosis Anxiety Depression Fibromyalgia GERD (gastroesophageal reflux disease) History of acute pancreatitis Pancreatic pseudocyst Pancreatitis Sciatica Thrombus Surgical History Surgical History History of esophagogastroduodenoscopy (EGD) Hx laparoscopic cholecystectomy Family History Family History Mother Diabetes mellitus Grandparent Parkinson disease Social History Social History Years smoked: 10 Smoking status: Current every day smoker Tobacco type: cigarettes Second hand tobacco smoke exposure: Yes Substance use: never Substance use type: does not use Gender identity (if verbalized by the patient): Female Spiritual care concerns: No Agree to blood products: Yes Exam Const: General: no acute distress, alert and ill appearing chronically Orientation/consciousness: patient oriented x3 HENMT: Head: normal to inspection Ears: external ears normal, TM's normal bilaterally and EAC's normal General nose exam: Normal nares present Face and sinus: normal facial exam Mouth: Yes moist mucous membranes Throat:
[2020-08-14] MEDS: ONDANSETRON INJ 4 MG/2 ML VIAL IV PUSH (17:00)
[2020-08-14] MEDS: THIAMINE HCL INJ 100 MG, FOLIC ACID INJ 1 MG, MULTIVITAMINS-12 INJ VIAL 1 5 ML, MULTIVI... IV CONT (17:15)
[2020-08-14 17:26] LABS: Ammonia 18 umol/L (11-32)
[2020-08-14 17:44] VITALS: BP 117/82; PULSE 84; RESP 16; TEMP 36.6; O2SAT 95
[2020-08-14 17:45] LABS: Anion Gap 14 mmol/L (8-16)
[2020-08-14 17:46] LABS: Estimated Glomerular Filt Rate > 60; Osmolality Calculated 294 mOsm/kg (285-295)
[2020-08-14 17:50] LABS: Hematocrit 41.3 % (35.0-49.0); Hemoglobin 14.5 g/dL (12.0-15.0); Mean Corpuscular HGB Conc 35.1 g/dL (32.0-36.0); Mean Corpuscular Volume 98.6 fL (78.0-102.0); Mean Platelet Volume 10.8 fl (9.2-11.8); Platelet Count Result 162 K/mm3 (150-420); Red Cell Distribution Width 13.4 % (11.6-14.4)
[2020-08-14 17:52] LABS: Band Neutrophils Percent 0 % (0-6); Eosinophils Percent Manual 2 % (1-6); Lymphocytes Absolute Manual 1.73 K/mm3 (1.1-4.5); Lymphocytes Percent Manual 56 % (18-44); Monocytes Absolute Manual 0.18 K/mm3 (0.1-0.90); Monocytes Percent Manual 6 % (3-9); Neutrophils Absolute Manual 1.11 K/mm3 (1.7-7.2); Neutrophils Percent Manual 36 % (46-73); Platelet Estimate Adequate (Adequate); Total Cells Counted 100
[2020-08-14 18:11] LABS: Eosinophils Absolute Manual 0.06 K/mm3 (0.02-0.5)
[2020-08-14 18:13] LABS: Mean Corpuscular Hemoglobin 34.6 pg (27.0-31.0); Red Blood Count 4.19 M/mm3 (4.20-5.40); White Blood Count 3.1 K/mm3 (4.8-10.8)
[2020-08-14 18:17] LABS: Carbon Dioxide 24 mmol/L (21-32); Chloride 105 mmol/L (98-108); Potassium 3.1 mmol/L (3.5-5.1); Sodium 143 mmol/L (136-145)
[2020-08-14 18:18] LABS: Alanine Aminotransferase 258 U/L (14-59); Albumin Level 3.7 g/dL (3.4-5.0); Alkaline Phosphatase 214 U/L (46-116); Aspartate Amino Transferase 288 U/L (15-37); Blood Urea Nitrogen 5 mg/dL (7-18); CRP < 0.5 mg/dL (0.0-0.9); Calcium 8.6 mg/dL (8.5-10.1); Glucose 119 mg/dL (70-99); Lactate Dehydrogenase 327 U/L (81-234); Salicylate 2.5 mg/dL (2.8-20.0); Total Protein 7.9 g/dL (6.4-8.2)
--- NOTE | 2020-08-14 18:18 | PC.NURSE ---
PT REFUSES TO KEEP BP CUFF, PULSE OX, AND ECG LEADS IN PLACE. EDUCATION PROVIDED.
[2020-08-14 18:19] LABS: Acetaminophen < 2 ug/mL (10-30)
[2020-08-14 18:20] LABS: Ethanol 382 mg/dL (0-6)
[2020-08-14 18:21] LABS: Lactic Acid Reflex 2.2 mmol/L (0.4-2.0)
[2020-08-14 18:31] LABS: Lipase 177 U/L (73-393)
[2020-08-14 18:39] LABS: HCO3 VBG 22.1 mEq/l (24.0-30.0); PCO2 VBG 33.3 mmHg (42.0-48.0); PO2 VBG 65.3 mmHg (35.0-45.0); pH VBG 7.44 (7.33-7.43)
[2020-08-14 18:40] LABS: Device ROOM AIR
[2020-08-14] MEDS: KETOROLAC (*BKC) 60 MG/2 ML VIAL IM (19:45)
[2020-08-14] MEDS: SODIUM CHLORIDE 0.9% IV 1,000 ML 999 ML IV CONT (19:45)
[2020-08-14 20:02] LABS: Reflex Lactic Acid Yes or No Add Lactic
[2020-08-14 20:18] LABS: Urine Pregnancy Test Negative
[2020-08-14 20:19] LABS: Pregnancy On Board Control Positive
[2020-08-14 21:01] VITALS: BP 117/63; PULSE 80; RESP 15; O2SAT 100
[2020-08-14 21:55] LABS: Amphetamine Screen Urine Positive (Negative); Barbiturate Screen Urine Negative (Negative); Benzodiazepines Screen Urine Negative (Negative); Cannabinoid Screen Urine Positive (Negative); Cocaine Screen Urine Negative (Negative); Methadone Screen Urine Negative (Negative); Opiate Screen Urine Negative (Negative); Phencyclidine Screen Urine Negative (Negative)
[2020-08-14 22:20] LABS: Add Urine Microscopic? NO; Appearance Urine Clear (Clear); Bilirubin Urine Negative (Negative); Blood Urine Negative (Negative); Color Urine Yellow (Yellow); Glucose Urine UA Negative (Negative); Ketones Urine Negative (Negative); Leukocyte Esterase Ur Negative (Negative); Nitrate Urine Negative (Negative); Protein Urine Negative (Negative); pH Urine 6.5 (5.0-8.0)
== END 2020-08-14 21:06 | disposition left against medical advice (07) ==
PROVIDERS: Emergency Provider Emergency Medicine; PCP Family Medicine
DX: K86.3 Pseudocyst of pancreas (principal); F10.129 Alcohol abuse with intoxication, unspecified; K86.1 Other chronic pancreatitis; G40.909 Epilepsy, unspecified, not intractable, without status epilepticus; K70.10 Alcoholic hepatitis without ascites
CPT/HCPCS: 36415; 36600; 74177; 80053; 80307; 81003; 81025; 82140; 82803; 82948; 83605; 83615; 83690; 85025; 86140; 87040; 87086; 93005; 96361; 96365; 96366; 96372; 96375; 99284; J1885; J2405; J3411; J3475; J7030; Q9967

== ENCOUNTER 2020-09-12 19:18 | Emergency (ER) | payer OTHER, SELFPAY ==
--- NOTE | ~2020-09-12 | CT_ITS ---
EXAMINATION: CT abdomen pelvis w con EXAM DATE: 09/12/2020 20:59 INDICATION: Nausea, vomiting, hematuria. Abdominal pain. Pancreatitis. TECHNIQUE: Spiral CT of the abdomen and pelvis was performed following intravenous injection of 100 m L Omnipaque 350. Axial, coronal and sagittal images were reviewed. The dose-length product (DLP) fo r this examination was 282.35 mGy-cm. The exposure was tailored according to patient size (auto mA e xposure control), and iterative reconstruction (ASIR) was used as additional dose reduction technique . Comparison is made to prior examination from 08/14/2020. FINDINGS: Small pancreatic calcifications, chronic pancreatitis. There is fluid density along the gonzalez creatic tail, probably small pseudocyst. There is hepatomegaly and severe hepatic steatosis without suspicious focal lesion identified. Spleen is normal in size. Small nodularity to both adrenal glands , hyperplasia versus adenomas. There are cholecystectomy clips. Portal and splenic veins are patent. Kidneys enhance symmetrically. There is no hydronephrosis. There is IUD which appears to be cent rally located within the endometrium, expected position. The bladder is unremarkable. There is no r etroperitoneal or pelvic lymphadenopathy. There are no findings to suggest appendicitis. The stomach and small bowel are unremarkable. There is expected amount of colonic stool. No free intraperitoneal gas. The heart is normal in size. T here are no pericardial or pleural effusions. The lung bases are unremarkable. The bones are unrema rkable. IMPRESSION: 1. No acute intra-abdominal findings or interval change. 2. Chronic pancreatitis. Pancreatic tail fluid density region likely small pseudocyst. 3. Hepatomegaly. Hepatic steatosis. Reviewed, dictated and finalized at location A. IMPRESSION: 1. No acute intra-abdominal findings or interval change. 2. Chronic pancreatitis. Pancreatic tail fluid density region likely small pse udocyst. 3. Hepatomegaly. Hepatic steatosis.
[2020-09-12 19:25] VITALS: BP 125/80; PULSE 91; RESP 15; TEMP 36.7; O2SAT 98
[2020-09-12 20:16] LABS: Basophils Absolute Auto 0.04 K/mm3 (0.00-0.10); Basophils Percent Auto 1.2 % (0.0-1.0); Eosinophils Absolute Auto 0.02 K/mm3 (0.02-0.50); Eosinophils Percent Auto 0.6 % (1.0-6.0); Hematocrit 37.8 % (35.0-49.0); Hemoglobin 13.2 g/dL (12.0-15.0); Immature Granulocyte Absolute 0.01 K/mm3 (0.00-0.00); Immature Granulocyte Percent A 0.3 % (0.0-0.0); Lymphocytes Absolute Auto 1.41 K/mm3 (1.10-4.50); Lymphocytes Percent Auto 41.6 % (18.0-42.0); Mean Corpuscular HGB Conc 34.9 g/dL (32.0-36.0); Mean Corpuscular Hemoglobin 34.1 pg (27.0-31.0); Mean Corpuscular Volume 97.7 fL (78.0-102.0); Mean Platelet Volume 10.8 fl (9.2-11.8); Monocytes Absolute Auto 0.19 K/mm3 (0.10-0.90); Monocytes Percent Auto 5.6 % (2.0-11.0); Neutrophils Absolute Auto 1.7 K/mm3 (1.7-7.2); Neutrophils Percent Auto 50.7 % (50.0-70.0); Platelet Count Result 202 K/mm3 (150-420); Red Blood Count 3.87 M/mm3 (4.20-5.40); White Blood Count 3.4 K/mm3 (4.8-10.8)
[2020-09-12 20:19] LABS: Add Urine Microscopic? YES; Appearance Urine Clear (Clear); Bilirubin Urine 1+ (Negative); Blood Urine Negative (Negative); Color Urine Yellow (Yellow); Glucose Urine UA Trace (Negative); Ketones Urine Trace (Negative); Leukocyte Esterase Ur Negative (Negative); Nitrate Urine Negative (Negative); Protein Urine Negative (Negative); Urobilinogen Urine >=8.0 mg/dL (0.2-1.0)
[2020-09-12 20:27] LABS: Alanine Aminotransferase 184 U/L (14-59); Albumin Level 3.2 g/dL (3.4-5.0); Alkaline Phosphatase 209 U/L (46-116); Amylase 24 U/L (25-115); Anion Gap 15 mmol/L (8-16); Aspartate Amino Transferase 242 U/L (15-37); Bilirubin,Total 1.3 mg/dL (0.00-1.00); Blood Urea Nitrogen 8 mg/dL (7-18); Calcium 8.2 mg/dL (8.5-10.1); Carbon Dioxide 24 mmol/L (21-32); Chloride 103 mmol/L (98-108); Estimated CRCL calculation 64 ml/min; Estimated Glomerular Filt Rate > 60; Glucose 153 mg/dL (70-99); Lipase 75 U/L (73-393); Osmolality Calculated 295 mOsm/kg (285-295); Potassium 2.8 mmol/L (3.5-5.1); Sodium 142 mmol/L (136-145); Total Protein 7.3 g/dL (6.4-8.2)
[2020-09-12 20:30] LABS: Squamous Epithelial Cell Urine Many /hpf (Few)
[2020-09-12 20:31] LABS: Mucus Urine Heavy /lpf
[2020-09-12] MEDS: ONDANSETRON INJ 4 MG/2 ML VIAL IV PUSH (20:42)
[2020-09-12 20:43] LABS: Amphetamine Screen Urine Negative (Negative); Barbiturate Screen Urine Negative (Negative); Benzodiazepines Screen Urine Positive (Negative); Cannabinoid Screen Urine Negative (Negative); Cocaine Screen Urine Negative (Negative); Methadone Screen Urine Negative (Negative); Opiate Screen Urine Negative (Negative); Phencyclidine Screen Urine Negative (Negative)
--- NOTE | 2020-09-12 20:44 | ED.ABDPAIN ---
HPI - Abdominal Pain General Chief Complaint: Abdominal Pain Stated Complaint: abdominal Time Seen by Provider: 09/12/20 19:40 Source: patient Mode of arrival: ambulatory Limitations: no limitations History of Present Illness HPI narrative: Patient comes in stating she is an alcoholic and drank heavily last pm and this am. She tells me she is nauseated and feels she has pancreatitis again. She complains of pain in her abdomen diffusely, and states her abdomen has been hurting since late last pm. Pain is moderately severe to severe and ongoing. It started about 10 pm last night. MD elicited complaint: abdominal pain Pertinent past history: other (alcoholic, pancreatitis) Onset (ago): hour(s) Pain Consistency: constant Location: periumbilical Severity: similar to previous episodes Quality: cramping and aching Radiation: other (diffuse) Exacerbating factors: nothing Relieving factors: nothing Associated symptoms: nausea Related Data Home Medications Medication Instructions Recorded Confirmed levonorgestrel [Mirena] 1 device INTRAUTERINE ONCE 12/14/19 09/12/20 Allergies Allergy/AdvReac Type Severity Reaction Status Date / Time hydrocodone AdvReac Severe THROAT Verified 04/16/20 13:34 [facility] Review of Systems Constitutional: Constitutional: Reports no additional constitutional complaints Eyes: Eyes: Reports no additional eye complaints ENT: Reports system reviewed and no additional complaints, except as documented Cardiovascular: Cardiovascular: Reports no additional cardiovascular complaints Respiratory: Respiratory: Reports no additional respiratory complaints Gastrointestinal: Gastrointestinal: Reports no additional gastrointestinal complaints Genitourinary: Genitourinary: Reports no additional female genitourinary complaints Musculoskeletal: Musculoskeletal: Reports no additional musculoskeletal complaints Integumentary/Breasts: Skin/Breast: Reports system reviewed and no additional complaints, except as docu Neurologic: Reports system reviewed and no additional complaints, except as documented Psychiatric: Psychiatric: Reports no additional psychiatric complaints Endocrine: Endocrine: Reports no additional endocrine complaints Hematologic/Lymphatic: Hematologic/Lymphatic: Reports no additional hematologic/lymphatic complaints Allergic/Immunologic: Allergic/Immunologic: Reports no additional allergic/immunologic complaints [facility] Past Medical History Medical History Alcoholic cirrhosis Anxiety Depression Fibromyalgia GERD (gastroesophageal reflux disease) History of acute pancreatitis Pancreatic pseudocyst Pancreatitis Sciatica Thrombus Surgical History Surgical History History of esophagogastroduodenoscopy (EGD) Hx laparoscopic cholecystectomy Family History Family History Mother Diabetes mellitus Grandparent Parkinson disease Social History Social History Years smoked: 10 Smoking status: Current every day smoker Tobacco type: cigarettes Second hand tobacco smoke exposure: Yes Substance use: never Substance use type: does not use Gender identity (if verbalized by the patient): Female Spiritual care concerns: No Agree to blood products: Yes Exam Const: Orientation/consciousness: patient oriented x3 HENMT: Ears: external ears normal General nose exam: Normal external nose present Face and sinus: normal facial exam Mouth: Yes Normal oral and palatal mucosa present Throat: posterior oropharynx normal Eyes: Other: conjunctiva appear inflammed Neck: Neck: normal visual inspection Chest: Chest palpation & inspection: normal inspection of the chest Resp: Effort & Inspection: normal respiratory effort Auscultation: clear to auscultation bilater
[2020-09-12 20:45] LABS: Ethanol 252 mg/dL (0-6)
[2020-09-12 20:50] LABS: Pregnancy On Board Control Positive; Urine Pregnancy Test Negative
[2020-09-12] MEDS: KCL 40 MEQ/0.9% SOD CHL 1,000 ML 250 ML IV CONT (21:41)
[2020-09-12 21:47] LABS: Magnesium 1.5 mg/dL (1.8-2.4)
[2020-09-12 21:50] VITALS: RESP 20
== END 2020-09-12 21:52 | disposition left against medical advice (07) ==
LOC: CHSED 19:21
PROVIDERS: Emergency Provider Emergency Medicine; PCP Family Medicine
DX: R10.9 Unspecified abdominal pain (principal); K86.3 Pseudocyst of pancreas
CPT/HCPCS: 36415; 74177; 80053; 80307; 81001; 81025; 82150; 83690; 83735; 85025; 96374; 96375; 99283; 99284; J2405; Q9967

== ENCOUNTER 2020-09-13 09:29 | Observation (INO) | payer OTHER, SELFPAY ==
[2020-09-13] VITALS (7 sets, daily range): BP systolic 117–133; BP diastolic 70–81; PULSE 69–75; RESP 16–20; TEMP 36.4–37.2; O2SAT 96–100; BMI 24.5
[2020-09-13 10:59] LABS: Basophils Percent Auto 0.5 % (0.2-1.2); Eosinophils Absolute Auto 0.1 K/mm3 (0-0.3); Eosinophils Percent Auto 1.7 % (0-4.4); Hematocrit 36.1 % (37.0-47.0); Hemoglobin 12.7 g/dL (12.0-15.0); Immature Granulocyte Absolute 0.01 K/mm3 (0.00-0.031); Immature Granulocyte Percent A 0.2 % (0-0.5); Lymphocytes Absolute Auto 1.56 K/mm3 (0.9-3.2); Lymphocytes Percent Auto 38.6 % (18.3-44.2); Mean Corpuscular HGB Conc 35.2 g/dl (32-36); Mean Corpuscular Hemoglobin 34.1 pg (26-34); Mean Platelet Volume 10.7 fl (7.4-10.4); Monocytes Absolute Auto 0.3 K/mm3 (0.1-0.6); Monocytes Percent Auto 6.7 % (2.6-8.5); Neutrophils Absolute Auto 2.1 K/mm3 (1.3-6.7); Neutrophils Percent Auto 52.3 % (45.5-73.1); Platelet Count Result 174 k/mm3 (150-375); Red Blood Count 3.72 M/mm3 (4.2-5.4); Red Cell Distribution Width 13.1 % (11.5-14.5)
[2020-09-13] MEDS: SODIUM CHLORIDE 0.9% IV 1,000 ML 999 ML IV CONT ×2 (11:04→12:48)
[2020-09-13] MEDS: METOCLOPRAMIDE HCL INJ 10 MG/2 ML VIAL IV PUSH (11:05)
[2020-09-13] MEDS: diphenhydrAMINE HCl INJ 50 MG/ML VIAL 25 MG IV PUSH (11:05)
--- NOTE | 2020-09-13 11:08 | ED.NAVMDI ---
HPI - Nausea/Vomiting/Diarrhea General Chief complaint: Nausea/Vomiting/Diarrhea Stated complaint: ABd pain, N/V Time Seen by Provider: 09/13/20 10:23 Source: patient Mode of arrival: ambulatory Limitations: no limitations History of Present Illness HPI Narrative: This is a 35 year old female that presents to the ER for nausea and vomiting x 2 days. Associated with diffuse abdominal pain and diarrhea. Does report history of pancreatitis. She did drink alcohol yesterday, but reports not as much as usual. Also reports dysuria. Denies fever. Related Data Home Medications Medication Instructions Recorded Confirmed levonorgestrel [Mirena] 1 device INTRAUTERINE ONCE 12/14/19 09/12/20 Allergies Allergy/AdvReac Type Severity Reaction Status Date / Time hydrocodone AdvReac Severe THROAT Verified 04/16/20 13:34 SWELLS Review of Systems Review of Systems: Narrative: CONSTITUTIONAL: Denies fever GASTROINTESTINAL: Reports abdominal pain, nausea, vomiting, and diarrhea. GENITOURINARY: Reports dysuria All systems reviewed & are unremarkable except as noted in HPI and below PMFSH Past Medical History Medical History Alcoholic cirrhosis Anxiety Depression Fibromyalgia GERD (gastroesophageal reflux disease) History of acute pancreatitis Pancreatic pseudocyst Pancreatitis Sciatica Thrombus Surgical History Surgical History History of esophagogastroduodenoscopy (EGD) Hx laparoscopic cholecystectomy Family History Family History Mother Diabetes mellitus Grandparent Parkinson disease Social History Social History Years smoked: 10 Smoking status: Current every day smoker Tobacco type: cigarettes Second hand tobacco smoke exposure: Yes Substance use: never Substance use type: does not use Gender identity (if verbalized by the patient): Female Spiritual care concerns: No Agree to blood products: Yes Exam Narrative: Exam Narrative: GENERAL: Well-appearing, well-nourished, and in no acute distress. HEAD: Normocephalic, atraumatic. EYES: EOMI. CHEST: Clear to auscultation. No respiratory distress. No wheezes rales or rhonchi HEART: Regular rate and rhythm. No murmur heard. Normal peripheral pulses. ABDOMEN: Soft, nondistended, normal active bowel sounds. Tender to palpation throughout the abdomen, without guarding EXTREMITIES: Normal range of motion. No edema. SKIN: Warm, dry, no rash. NEURO: No focal deficits. Alert and oriented x3. PSYCH: Normal mood and affect Course Consultations Consultation #1: Spoke with hospitalist about patient and work-up who accepts admission Date: 09/13/20 Time: 15:37 Vital Signs Vital signs: Vital Signs Temperature 97.9 F 09/13/20 09:33 Pulse Rate 74 09/13/20 09:33 Respiratory Rate 18 09/13/20 09:33 Blood Pressure 133/72 09/13/20 09:33 Pulse Oximetry 98 09/13/20 09:33 Temperature 97.9 F 09/13/20 09:33 Pulse Rate 72 09/13/20 11:45 Respiratory Rate 18 09/13/20 11:45 Blood Pressure 130/70 09/13/20 11:45 Pulse Oximetry 100 09/13/20 11:45 MDM - Nausea/Vomiting/Diarrhea MDM Narrative Medical decision making narrative: Patient presents to the emergency department for nausea and vomiting x2 days. Reports history of chronic pancreatitis. Did drink yesterday. She is afebrile and nontoxic-appearing. Vitals are stable. CBC without leukocytosis. Metabolic panel with mild hypokalemia and hypomagnesemia, these were replaced in the ED. Does also show transaminitis, which appears to be chronic for patient with known history of hepatic steatosis. Lipase is normal. UA without evidence of infection. Bedside test was negative. She did have a CT scan of her abdomen and pelvis yesterday which was without acute findings. Did show
[2020-09-13 11:11] LABS: Ethanol 66 mg/dL (<10)
[2020-09-13 11:29] LABS: Add Urine Microscopic? YES; Appearance Urine Cloudy (Clear); Bacteria Urine Trace /hpf; Bilirubin Urine 2+ (Negative); Blood Urine Negative (Negative); Color Urine Amber (Yellow); Glucose Urine UA Negative (Negative); Ketones Urine Trace mg/dL (Negative); Leukocyte Esterase Ur Negative LEU/UL (Negative); Mucus Urine Heavy /lpf; Nitrate Urine Negative (Negative); Protein Urine 1+ mg/dL (Negative); RBC Urine 0-2 /hpf (0-2); Specific Grav Ur 1.027 (1.001-1.035); Squamous Epithelial Cell Urine Many /hpf (Few)
[2020-09-13 12:21] LABS: Alanine Aminotransferase 163 U/L (4-35); Albumin Level 3.5 g/dL (3.5-5.1); Alkaline Phosphatase 190 U/L (38-126); Anion Gap 10 mmol/L (8-16); Aspartate Amino Transferase 264 U/L (14-36); Bilirubin,Total 1.8 mg/dL (0.2-1.3); Blood Urea Nitrogen 4 mg/dL (7-17); Calcium 8.2 mg/dL (8.4-10.2); Carbon Dioxide 25 mmol/L (22-30); Chloride 106 mmol/L (98-107); Estimated CRCL calculation 117 ml/min; Estimated Glomerular Filt Rate > 60; Glucose 142 mg/dL (65-105); Lipase 106 U/L (23-300); Magnesium 1.4 mg/dL (1.6-2.3); Potassium 3.3 mmol/L (3.4-5.0); Sodium 141 mmol/L (137-145)
[2020-09-13] MEDS: MAGNESIUM SULF 1 GM/D5W 100 ML 1 GM/100 ML BAG IVPB (12:48)
[2020-09-13] MEDS: PROCHLORPERAZINE EDISYLATE 10 MG/2 ML VIAL IV PUSH (12:48)
[2020-09-13] MEDS: MORPHINE SULFATE (*CRX) 4 MG/ML INJ IV PUSH (14:04)
[2020-09-13] MEDS: HYDROmorphone HCL INJ (*CRX) 1 MG/ML SYR 0.5 MG IV PUSH ×3 (15:46→21:05)
--- NOTE | 2020-09-13 16:28 | PC.NURSE ---
This patient, Taisha Harrison, was admitted to 3 [facility] Surg Room 319-01. Patient/family oriented to hospital policies and general routines including ID bracelet, bed and alarms, visiting hours, pain management, procedures, bathroom and other care routines, personal items, smoking policy, room service/diet, and visiting hours. Information on how to activate the Rapid Response Team has been discussed. Patient/Family are encouraged to report perceived risks to care and to ask questions if they do not understand what they are told or what they should do.
--- NOTE | 2020-09-13 18:37 | PM.IMHP ---
H&P: HPI History of Present Illness Date/Time: 09/13/20 18:37 this is a 35-year-old female patient who has a history of having several bouts of pancreatitis. She also has a history of anxiety and depression and has been battling recurrent pancreatitis. She was last admitted here on 10/02/2019. The patient initially developed necrotizing pancreatitis with abdominal vasculature clotting in [place]. The patient had been on Pradaxa and is now off. It was thought that of her problems were due to her gallbladder and she has had a laparoscopic cholecystectomy. The patient stated she rarely drinks but she had a drink yesterday because she felt poorly yesterday and felt like she needed a beer. She has had nausea vomiting for 2 days. With diffuse abdominal pain and diarrhea. Patient's potassium was 3.3 and had been 2.8 yesterday. The patient had potassium replaced today. The magnesium was 1.4 which was also replaced today. AST is 264 which is about her baseline. ALT is 163 which is about her baseline. Total bilirubin is 1.8. The patient does have alcoholic cirrhosis of the liver. The patient stated that she has had seizures in the past and she has peripheral neuropathy so she takes gabapentin. The patient's blood alcohol level was 252 yesterday and is 66 today., Benadryl, magnesium, Compazine, potassium, morphine, and Dilaudid, the patient still continues to complain of right upper quadrant pain. Her pelvis and abdomen yesterday which was read by radiologist as no acute intra-abdominal findings or interval change. Chronic pancreatitis. Pancreatic tail fluid density region likely small pseudocyst. Hepatomegaly. Hepatic steatosis. It appears the patient was seen at [facility] by Dr. suarez yesterday. The lipase was only 106. The patient is being admitted for observation on the date of service of 09/13/2020 Chief Complaint: Nausea vomiting and diarrhea and abdominal pain Review of Systems Review of Systems: All systems reviewed & are unremarkable except as noted in HPI and below Constitutional: Constitutional: Reports as per HPI and Reports no additional constitutional complaints Eyes: Eyes: Reports as per HPI and Reports no additional eye complaints ENT: Reports system reviewed and no additional complaints, except as documented and Reports Normal hearing present Cardiovascular: Cardiovascular: Reports no additional cardiovascular complaints Respiratory: Respiratory: Reports no additional respiratory complaints and Reports no additional respiratory complaints Gastrointestinal: Gastrointestinal: Reports as per HPI and Reports no additional gastrointestinal complaints Musculoskeletal: Musculoskeletal: Reports no additional musculoskeletal complaints Integumentary/Breasts: Skin/Breast: Reports system reviewed and no additional complaints, except as docu and Reports as per HPI Neurologic: Reports system reviewed and no additional complaints, except as documented, Reports as per HPI and Reports Normal hearing present Psychiatric: Psychiatric: Reports no additional psychiatric complaints and Reports as per HPI Endocrine: Endocrine: Reports no additional endocrine complaints Hematologic/Lymphatic: Hematologic/Lymphatic: Reports no additional hematologic/lymphatic complaints Allergic/Immunologic: Allergic/Immunologic: Reports no additional allergic/immunologic complaints [facility] Past Medical History Medical History (Updated 09/13/20 @ 18:50 by Juana Franklin NP) Alcoholic cirrhosis Anxiety Depression Fibromyalgia GERD (gastroesophageal reflux disease) History of acute pancreatitis Pancreatic pseudocyst Pancreatitis Sciatica Seizures Thrombus Surgical History Surgical History History of esophagogastroduodenoscopy (EGD) Hx laparoscopic cholecystectomy Family History Family History Mother Diabetes mellitus Grandparen
[2020-09-13] MEDS: ONDANSETRON INJ 4 MG/2 ML VIAL IV PUSH ×2 (18:42→23:28)
[2020-09-13] MEDS: SODIUM CHLORIDE 0.9% IV 1,000 ML 125 ML IV CONT (19:01)
[2020-09-13] MEDS: GABAPENTIN 300 MG CAPSULE 600 MG BY MOUTH (20:20)
[2020-09-13] MEDS: NICOTINE (*PBKC) 14 MG PATCH 1 PATCH TRANSDERM (20:20)
[2020-09-13] MEDS: LORazepam INJ (*CRX) 2 MG/ML VIAL 0.5 MG IV PUSH (23:28)
[2020-09-14] VITALS: PULSE 72
[2020-09-14] MEDS: HYDROmorphone HCL INJ (*CRX) 1 MG/ML SYR 0.5 MG IV PUSH ×3 (00:19→08:13)
[2020-09-14] MEDS: ONDANSETRON INJ 4 MG/2 ML VIAL IV PUSH ×2 (03:24→08:13)
[2020-09-14 04:00] VITALS: PULSE 72
[2020-09-14] MEDS: LORazepam INJ (*CRX) 2 MG/ML VIAL 0.5 MG IV PUSH (05:53)
[2020-09-14 06:00] VITALS: BP 124/79; PULSE 77; RESP 16; TEMP 36.1; O2SAT 97
[2020-09-14 06:08] LABS: Basophils Percent Auto 0.3 % (0.2-1.2); Eosinophils Absolute Auto 0.2 K/mm3 (0-0.3); Eosinophils Percent Auto 5.7 % (0-4.4); Hematocrit 33.1 % (37.0-47.0); Hemoglobin 11.3 g/dL (12.0-15.0); Lymphocytes Absolute Auto 1.29 K/mm3 (0.9-3.2); Mean Corpuscular HGB Conc 34.1 g/dl (32-36); Mean Corpuscular Hemoglobin 33.4 pg (26-34); Mean Corpuscular Volume 97.9 fl (80-100); Mean Platelet Volume 11.2 fl (7.4-10.4); Monocytes Absolute Auto 0.1 K/mm3 (0.1-0.6); Neutrophils Absolute Auto 1.4 K/mm3 (1.3-6.7); Platelet Count Result 134 k/mm3 (150-375); Red Blood Count 3.38 M/mm3 (4.2-5.4)
[2020-09-14 06:17] LABS: Lactic Acid Reflex 0.7 mmol/L (0.7-2.1)
[2020-09-14 06:20] LABS: Alanine Aminotransferase 140 U/L (4-35); Albumin Level 3.2 g/dL (3.5-5.1); Alkaline Phosphatase 167 U/L (38-126); Anion Gap 6 mmol/L (8-16); Aspartate Amino Transferase 202 U/L (14-36); Calcium 7.6 mg/dL (8.4-10.2); Carbon Dioxide 25 mmol/L (22-30); Chloride 106 mmol/L (98-107); Estimated CRCL calculation 117 ml/min; Estimated Glomerular Filt Rate > 60; Glucose 93 mg/dL (65-105); Lactate Dehydrogenase 662 U/L (313-618); Lipase 48 U/L (23-300); Magnesium 1.5 mg/dL (1.6-2.3); Sodium 137 mmol/L (137-145)
[2020-09-14 06:35] LABS: Anisocytosis 1+ (NORMAL); Atypical Lymphocytes Present; Platelet Estimate Adequate (Adequate)
[2020-09-14 06:48] LABS: Blood Urea Nitrogen < 2 mg/dL (7-17)
[2020-09-14 08:00] VITALS: PULSE 84
[2020-09-14 08:08] LABS: Free T4 Free Thyroxine Reflex 1.12 ng/dL (0.78-2.19)
[2020-09-14] MEDS: NICOTINE (*PBKC) 14 MG PATCH 1 PATCH TRANSDERM (08:13)
[2020-09-14] MEDS: GABAPENTIN 300 MG CAPSULE 600 MG BY MOUTH ×2 (08:13→12:14)
[2020-09-14] MEDS: SODIUM CHLORIDE 0.9% IV 1,000 ML 125 ML IV CONT (08:41)
[2020-09-14] MEDS: MAGNESIUM SULFATE 3GM/D5W100ML 3 GM/100 ML BAG IVPB (08:42)
[2020-09-14] MEDS: POTASSIUM CHLORIDE 20 MEQ TABLET 40 MEQ PO (08:42)
[2020-09-14 09:28] LABS: Total Triiodothyronine (T3) 1.42 NG/ML (0.97-1.69)
[2020-09-14 11:58] VITALS: BMI 24.5
[2020-09-14 12:00] VITALS: PULSE 84
--- NOTE | 2020-09-14 12:25 | PM.DS ---
DS: Admitting Diagnosis Admitting Diagnosis Admitting Diagnosis: Abdominal pain DS: Discharge Diagnosis Discharge Diagnosis (1) Acute on chronic pancreatitis: Code(s): K85.90 - Acute pancreatitis without necrosis or infection, unspecified; K86.1 - Other chronic pancreatitis Status: Acute (2) History of acute pancreatitis: Code(s): Z87.19 - Personal history of other diseases of the digestive system Status: Acute (3) Alcoholic cirrhosis: Code(s): K70.30 - Alcoholic cirrhosis of liver without ascites Status: Acute (4) History of seizures: Code(s): Z87.898 - Personal history of other specified conditions Status: Acute (5) Tobacco dependence: Code(s): F17.200 - Nicotine dependence, unspecified, uncomplicated Status: Chronic (6) Hypokalemia: Code(s): E87.6 - Hypokalemia Status: Acute (7) Hypomagnesemia: Code(s): E83.42 - Hypomagnesemia Status: Acute DS: Summary Hospital Course Reason for hospitalization: Patient is a 35-year-old woman with a history of liver cirrhosis, chronic pancreatitis, who presented to the emergency room with severe uncontrolled abdominal pain with associated nausea and vomiting. Pain is similar to her previous pancreatitis attacks. She was last hospitalized a few weeks ago in the [place] area for acute pancreatitis were she was there for 4 days. Patient's symptoms began days ago and she was unable to control her pain with her home medications so she came in for further evaluation. Initial vitals showed She was afebrile, normal heart rate, respiratory rate, oxygenation on room air blood pressure 133/72. Initial labs showed leukopenia, normal anemia labs and platelet counts. Hypokalemia at 2.9. Hypomagnesemia at 1.5. Patient had elevated total bilirubin levels, AST/ALT, alk phosphatase, normal amylase and lipase levels. Urinalysis showed bilirubin in her urine. Many squamous cells. Positive benzodiazepines and her ethyl alcohol level was 252. CT abdomen pelvis showed No acute intra-abdominal findings or interval change. Chronic pancreatitis. Pancreatic tail fluid density region likely small pseudocyst. Hepatomegaly. Hepatic steatosis. Patient was admitted into the hospital with IV fluid, placed NPO, antiemetics and IV pain medication ordered. Patient was feeling much better this morning her requesting a diet. Started the patient off with a clear liquid diet which he tolerated well. Patient reported needing to leave the hospital to flower picker her car from in by 4:[address] the patient on a low-fat diet which she tolerated well without any nausea, vomiting or abdominal pain. She is stable at this time for discharge to abstain from alcohol which was told to her multiple times. Patient understands and agrees with the plan all questions answered. Hospital Course: See above Status at Discharge Cognitive/behavioral status at discharge: Stable, improved. Time Spent with Patient Time attestation: Total time spent providing and/or coordinating discharge services: 41 Time spent: Greater than 30 minutes Exam Narrative: Exam Narrative: General: 35-year-old woman sitting up on the side of the bed talking to her friend at bedside. Appears comfortable. In no acute distress. Skin: No jaundice or cyanosis. Good skin turgor. Neck: Full range of motion. Supple. Nontender. Respiratory: Lungs are clear to auscultation bilaterally. No bony chest wall tenderness. Cardiovascular: The heart has a regular rate and rhythm without murmur. No carotid bruits. Lower extremities: No lower extremity edema. Distal pulses are easily palpated. No calf tenderness to palpation. Gastrointestinal: The abdomen is soft, nontender and nondistended with active bowel sounds. Psychiatric: Lucid and oriented. Memory intact. Neurologic: No focal deficits. Speech is clear. No facial drooping. DS: Data
--- NOTE | 2020-09-14 12:42 | PCNSR ---
On 09/14/20, the student, Zoe Brunson, provided care and completed [facility] documentation on this patient. I have reviewed the student's documentation and agree with the findings.
== END 2020-09-14 12:50 | disposition home or self-care (01) ==
LOC: ANHED 15:33 → ANH3MEDSUR 15:58
PROVIDERS: Nurse Practitioner; Physician Assistant; Admitting Provider Family Medicine; Emergency Provider Emergency Medicine; Visit Provider Physician Assistant
DX: K85.90 Acute pancreatitis without necrosis or infection, unspecified (principal); K86.1 Other chronic pancreatitis; K70.30 Alcoholic cirrhosis of liver without ascites; E87.6 Hypokalemia; E83.42 Hypomagnesemia; K21.9 Gastro-esophageal reflux disease without esophagitis; M79.7 Fibromyalgia; F41.8 Other specified anxiety disorders; G62.9 Polyneuropathy, unspecified; F17.290 Nicotine dependence, other tobacco product, uncomplicated; Z87.898 Personal history of other specified conditions
CPT/HCPCS: 36415; 80053; 80307; 81001; 81025; 83605; 83615; 83690; 83735; 84439; 84443; 84480; 85025; 96361; 96365; 96374; 96375; 96376; 99285; A9270; G0378; G0379; J0780; J1170; J1200; J2060; J2270; J2405; J2765; J3475; J3480; J7030; J7060

== ENCOUNTER 2020-12-28 12:43 | Outpatient (CLI) | payer OTHER, SELFPAY ==
[2020-12-28 13:12] LABS: Hematocrit 38.3 % (35.0-49.0); Mean Corpuscular HGB Conc 33.9 g/dL (32.0-36.0); Mean Corpuscular Hemoglobin 33.2 pg (27.0-31.0); Mean Corpuscular Volume 97.7 fL (78.0-102.0); Mean Platelet Volume 11.4 fl (9.2-11.8); Platelet Count Result 222 K/mm3 (150-420); Red Blood Count 3.92 M/mm3 (4.20-5.40); Red Cell Distribution Width 12.6 % (11.6-14.4); White Blood Count 8.2 K/mm3 (4.8-10.8)
[2020-12-28 13:24] LABS: INR 1.1; Prothrombin Time 11.5 Seconds (9.50-12.10)
[2020-12-28 13:25] LABS: Alanine Aminotransferase 84 U/L (14-59); Albumin Level 3.4 g/dL (3.4-5.0); Alkaline Phosphatase 221 U/L (46-116); Anion Gap 13 mmol/L (8-16); Aspartate Amino Transferase 65 U/L (15-37); Bilirubin,Total 0.6 mg/dL (0.00-1.00); Blood Urea Nitrogen 6 mg/dL (7-18); Calcium 9.5 mg/dL (8.5-10.1); Carbon Dioxide 23 mmol/L (21-32); Chloride 101 mmol/L (98-108); Estimated Glomerular Filt Rate > 60; Glucose 350 mg/dL (70-99); Osmolality Calculated 295 mOsm/kg (285-295); Potassium 3.9 mmol/L (3.5-5.1); Sodium 137 mmol/L (136-145); Total Protein 8.7 g/dL (6.4-8.2)
[2020-12-28 13:53] LABS: HIV 1 P24 AG Negative (Negative); HIV 1/2 AB Negative (Negative)
[2020-12-30 13:36] LABS: RPR Screen Non-Reactive (Non-Reactive)
[2020-12-30 18:58] LABS: Hepatitis A Antibody IgM Nonreactive; Hepatitis B Core Antibody Nonreactive (Nonreactive); Hepatitis B Surface Antigen Nonreactive (Nonreactive); Hepatitis C Signal to Cutoff 0.02 ratio (<1.00); Hepatitis C Virus Antibody Nonreactive (Nonreactive)
== END 2020-12-28 12:44 | disposition home or self-care (01) ==
LOC: CHSLAB 12:47
PROVIDERS: PCP Family Medicine; Visit Provider Family Medicine
DX: K70.30 Alcoholic cirrhosis of liver without ascites (principal); Y09 Assault by unspecified means
CPT/HCPCS: 36415; 80053; 80074; 85027; 85610; 86592; 86703; 87491; 87591